=== PATIENT | female | born 1935 | race African-American/Black ===

== ENCOUNTER 2016-11-22 07:49 | Inpatient (IN) | payer MEDICARE ==
[~2016-11-22] VITALS: Ht 154.9 cm; Wt 75.8 kg
--- NOTE | ~2016-11-22 | OP ---
PATIENT NAME: ELIZABETH LOZANO MEDICAL RECORD: [id number] :34 LOCATION:D. D.2107 ADMISSION DATE:11/22/16 SURGEON: ARUN RUBALCAVA MD DATE OF OPERATION: 11/22/2016 She is operated today, 11/22/2016 REFERRING PHYSICIAN: Dr. Boss of [place]. PREOPERATIVE DIAGNOSES: Dialysis access complications with multiple prior dialysis access thromboses, multiple central vein stenoses, end-stage renal disease, diabetes and hypertension. POSTOPERATIVE DIAGNOSES: Dialysis access complications with multiple prior dialysis access thromboses and multiple central vein stenoses and end-stage renal disease, diabetes and hypertension. 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 at the confluence with the subclavian vein where it is jailed by a Wallstent and occlusion of the anterior jugular vein with collateralization of venous outflow to the shoulder and to the left neck, then ultrasound-guided central venous line insertion via the right common femoral vein done also with ultrasound guidance, then removal of a left internal jugular tunneled dialysis catheter, performance of a superior vena cavogram revealing severe stenoses of the internal jugular vein and left brachiocephalic vein, subsequent balloon angioplasty of those venous stenoses and then insertion of a HeRO outflow stents device into the right atrium. Then, implantation of a PTFE Acuseal graft in the left arm taking origin from the brachial artery above the antecubital space. SURGEON: Arun Rubalcava MD. ANESTHESIA: General endotracheal per Dr. Esposito, and CRNAs. ADDITIONAL PROCEDURES PERFORMED: Direct cannulation of the left brachial artery and a brachial artery arteriogram. PREOPERATIVE NOTE: Ms. Lozano is an 81-year-old -[place] from [facility]. She has end-stage renal disease. She is on chronic hemodialysis and has been off for sometime, access dependent on a tunneled left internal jugular dialysis catheter. 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 I have recommended that she have a HeRO graft implanted in the left arm. She will need additional IV access intraoperatively for at least the first day or two while she is hospitalized and so I have additional central line inserted. Under general endotracheal anesthesia in supine position first, the patient is prepped and draped in sterile manner and the right neck was examined, the anterior jugular vein was prominent, the internal jugular vein was patent at least above the level of the clavicle. It was accessed with ultrasound guidance and micropuncture technique and I found that I could not advance a wire into the brachiocephalic vein due to the jailing effect of the Wallstents. I accessed the anterior jugular vein and found basically the same thing. I injected OPERATIVE REPORT [id number] ELIZABETH LOZANO contrast through the micropuncture catheter and demonstrated total occlusion of the internal and anterior jugular vein with collateralization of venous outflow to the left neck and over to the right shoulder area and chest wall. I abandoned that site and then went to the right groin where the patient has had prior venous access for dialysis I assume. I was able to see an accessible common femoral vein and with ultrasound guidance, I inserted an Arrow guard central venous triple lumen catheter. All lumens were aspirated, free return of blood confirmed. They were then heparin lock, clamped and capped and the catheter sutured to the skin near the entry site with 2-0 Prolene and a sterile dressing applied. The patient was then prepped and draped for the HeRO graft implantation. I made an incision at the base of the neck on the left and freed the tunneled dialysis catheter from the surrounding structures. I placed a pursestring suture around it to provide vascular control. The subcutaneous segment with the Dacron felt cuff was excised and sent for culture and the external segment was discarded. I removed the intravascular portion over a Glidewire and it was discarded. I positioned the guidewire in the inferior vena cava and then did a catheter exchange with a Glidewire and placed an Amplatz wire, which reach down into the left iliac vein. A 7-Cape Verdean introducer was placed and an angiogram performed, which demonstrated stenosis of the internal jugular and left brachiocephalic veins, which was very severe and no apparent significant stenosis of the superior vena cava with normal flow into the right atrium. I subsequently dilated the brachiocephalic vein and internal jugular vein with an 8-mm diameter x 60 mm angioplasty balloon and then passed additional dilators over the Amplatz wire and then a peel-away introducer dilator and lastly the HeRO outflow device was inserted and its tip positioned in the right atrium. It was aspirated, free return of blood confirmed. It was then flushed with saline and then dilute heparin lock solution and clamped. An incision was made beneath the clavicle in the deltopectoral groove and the HeRO outflow device then pulled through subcutaneous tunnel into that incision where it was appropriately then shortened and prepared for connection with a PTFE graft. It was again flushed with heparinized saline and clamped. I then made a fairly large incision on the distal left arm, I first exposed the old cephalic vein and brachial artery anastomosis, actually the scarring was quite dense and the dissection tedious and hazardous. So I then extended the incision upwards and exposed a more proximal portion of the brachial artery. The pulsation in the artery were diminished and to evaluate for possible proximal arterial stenosis, I did a direct cannulation of the brachial artery with micropuncture technique and inserted a 4-Cape Verdean catheter and injected contrast with digital subtraction angiography technique and demonstrated that there was a patent subclavian and axillary vein as well as brachial vein without stenoses. Distally around the area on which I was working, there were areas of beating or probably spasm and there was good flow through both the radial and ulnar arteries into the hand with an intact palmar arch. I then controlled the artery with doubly looped Silastic tapes, it was occluded. A small arteriotomy was made. I did not think that an Acuseal graft would do well, sutured to a small about 3-1/2-mm diameter artery and so I chose to use a tapered 4-mm to 7 mm Propaten PTFE graft. I used just a short tapered segment. The 4-mm end was beveled. The artery was opened. It was flushed with heparinized saline proximally and distally and the anastomosis completed with running 6-0 Prolene. The suture line was treated with Evicel and after a period of time had lapsed, the graft was clamped and the brachial artery loops released and excellent flow was immediately restored in the brachial artery and there was good pulsation in the new PTFE graft. I then took a standard 6-mm diameter Acuseal graft and anastomosed it end-to-end to the OPERATIVE REPORT [id number] ELIZABETH LOZANO segment. This was done with running 6-0 Prolene and I then treated that anastomotic suture line with BioGlue and after sufficient period of time had elapsed, the Acuseal graft was clamped and the clamp on the Propaten segment released and the suture lines found to be hemostatic. The graft was then flushed with heparinized saline and clamped again. It was placed in a very superficial subcutaneous tunnel, then from the antecubital space up to the deltopectoral groove. It was shortened and attached then with a HeRO connector to the HeRO outflow device and that was sutured to the investing pectoral fascia with a single 2-0 Prolene suture. With release of the occluding clamps, excellent flow manifested by a good thrill, was immediately identified. The patient had not been systemically anticoagulated and was not necessary to reverse any heparin. The wounds were irrigated with Ancef and gentamicin solution. They were infiltrated and irrigated with 0.25% Marcaine with epinephrine and closed without the use of a drain in layers with interrupted inverted 3-0 Vicryl and running intracuticular 4-0 Monocryl and Dermabond glue. They were dressed with Maxorb Ag, Tegaderm and Cavilon skin prep and the patient awakened from her anesthetic, was taken to the recovery room in stable condition. Blood loss about 100 cc was unreplaced. All sponges, instruments and needles were accounted for and no drain was used as I described. The only "specimen" was the short cuff segment of tunneled dialysis catheter, which was sent for culture only. PLAN: The patient will remain in inpatient status overnight tonight and have dialysis here tomorrow following Acuseal protocol. She will be discharged to home when she is otherwise stable from all of her other medical problems when her pain is adequately controlled with oral medications and her dialysis access has been demonstrated reliable. I will have her follow up with me in about a week after her discharge. She will need to continue Acuseal protocol for 2 weeks when she gets back to [facility]. TRANSINT:[id number] Voice Confirmation ID: [id number] DOCUMENT ID: [id number] ARUN RUBALCAVA MD CC: KARSTEN BOSS III MD [id number] DICTATION DATE: 11/22/161811 ASSISTANT BASKETBALL COACH: 11/22/16 2352 ADM IN [facility] [address] [place] [address]
[2016-11-22 08:48] LABS: BASOPHILS 0.5 % (0-2); EOSINOPHILS 3.8 % (0-7); HEMATOCRIT 36.9 % (36.0-48.0); HEMOGLOBIN 11.7 g/dL (12-16); IMMATURE GRANULOCYTES 0.2 % (0-5); LYMPHOCYTES 40.4 % (15-50); MCH 29.4 pg (26.0-34.0); MCHC 31.7 g/dL (31.0-37.0); MCV 92.7 fL (80.0-100.0); MONOCYTES 4.3 % (2-11); NEUTROPHILS 50.8 % (40-80); PLATELET COUNT 159 10x3/uL (130-400); RBC 3.98 10x6/uL (4.00-5.40); RDW 16.1 % (11.5-14.5)
[2016-11-22 09:02] LABS: APTT 28.9 SECONDS (22.8-39.4); INR 0.94 (0.85-1.17); PROTIME 12.4 SECONDS (11.6-15.0)
[2016-11-22 09:16] LABS: CALCIUM 8.4 mg/dL (8.5-10.1); CARBON DIOXIDE 20.2 mmol/L (21.0-32.0); CREATININE - SERUM 4.8 mg/dL (0.6-1.3); POTASSIUM - SERUM 4.2 mmol/L (3.5-5.1)
[2016-11-22] MEDS ORDERED: NORVASC10 MG PO (10:00)
[2016-11-22] MEDS ORDERED: COZAAR100 MG PO (10:01)
[2016-11-22] MEDS ORDERED: METOPROLOL TART50 MG PO (10:02)
[2016-11-22] MEDS ORDERED: NEPHROCAPS SOFTG1 MG PO (10:03)
[2016-11-22 10:05] VITALS: BMI 31.6
[2016-11-23 04:34] VITALS: BP 142/67
[2016-11-23 07:50] VITALS: BP 140/48
[2016-11-23 11:46] VITALS: Ht 154.9 cm; Wt 75.8 kg
== END 2016-11-23 16:25 | disposition home or self-care (01) | DRG 252 ==
LOC: D.OPS 07:49 → D.M2 18:14 → D.OPS 18:15 → D.M2 18:15
PROVIDERS: Surgery; ADMIT Internal Medicine Nephrology
PROC: 037Y3ZZ Dilation of Upper Artery, Percutaneous Approach (ICD-10-PCS; 2016-11-22)
PROC: 03180JD Bypass Left Brachial Artery to Upper Arm Vein with Synthetic Substitute, Open Approach (ICD-10-PCS; 2016-11-22)
PROC: 03180KF Bypass Left Brachial Artery to Lower Arm Vein with Nonautologous Tissue Substitute, Open Approach (ICD-10-PCS; 2016-11-22)
PROC: 02HV33Z Insertion of Infusion Device into Superior Vena Cava, Percutaneous Approach (ICD-10-PCS; 2016-11-22)
PROC: B548ZZA Ultrasonography of Superior Vena Cava, Guidance (ICD-10-PCS; 2016-11-22)
PROC: B5181ZZ Fluoroscopy of Superior Vena Cava using Low Osmolar Contrast (ICD-10-PCS; 2016-11-22)
PROC: 05PYX3Z Removal of Infusion Device from Upper Vein, External Approach (ICD-10-PCS; 2016-11-22)
PROC: B5131ZZ Fluoroscopy of Right Jugular Veins using Low Osmolar Contrast (ICD-10-PCS; principal; 2016-11-22 12:00)
PROC: 05743ZZ Dilation of Left Innominate Vein, Percutaneous Approach (ICD-10-PCS; 2016-11-22 12:00)
PROC: 5A1D00Z (ICD-10-PCS; 2016-11-23)
DX: T82.868A Thrombosis due to vascular prosthetic devices, implants and grafts, initial encounter (principal); N18.6 End stage renal disease; I12.0 Hypertensive chronic kidney disease with stage 5 chronic kidney disease or end stage renal disease; Y83.8 Other surgical procedures as the cause of abnormal reaction of the patient, or of later complication, without mention of misadventure at the time of the procedure; E11.22 Type 2 diabetes mellitus with diabetic chronic kidney disease; Z99.2 Dependence on renal dialysis; Z87.891 Personal history of nicotine dependence; D64.9 Anemia, unspecified

== ENCOUNTER 2017-01-18 20:24 | Inpatient (IN) | payer MEDICARE ==
[~2017-01-18] VITALS: Ht 154.9 cm; Wt 78.9 kg
[~2017-01-18 20:24] MED LIST: COZAAR100 MG PO; METOPROLOL TART50 MG PO; NEPHROCAPS SOFTG1 MG PO; NORVASC10 MG PO
--- NOTE | 2017-01-19 00:11 | NUR ---
PT ARRIVED VIA WHEELCHAIR WITH FAMILY. PUT AMBULATE TO BED. GAIT UNSTEADY. PT LEANING OVER FOR SUPPORT OF BED. PT IS AAO. A RESERVE LEFT ARM SIGN HUNG ABOVE BED. PT IS NPO AND VERBALIZES UNDERSTANDING. PT DENIES ANY NEEDS. PT RESTING IN BED. NO S/S OF DISTRESS. WILL CPOC
--- NOTE | 2017-01-19 01:20 | NUR ---
PAGED THE ASSOCIATE DESIGNER AND TAXI INSTRUCTOR BUS TROLLEY TO ASK ABOUT ORDERS AND TO CLARIFY ON WEATHER OR NOT I CAN USE RIGHT ARM FOR BLOOD DRAWS AND IV ACCESS. PT STATES THERE IS A FISTULA IN THAT UPPER ARM, LET LAB DRAW FROM HAND BUT WOULD NOT ALLOW ABOVE THE WRIST. WILL CPOC
--- NOTE | 2017-01-19 03:00 | NUR ---
SPOKE WITH DIONISIO DIAS ABOUT RIGHT ARM, SHE VERBALIZED THAT THE ARM IS OK TO USE ON BLOOD DRAWS AND IV ACCESS. PT VERBALIZES UNDERSTANDING AND DENIES ANY QUESTIONS OR CONCERNS. DIONISIO ALSO GAVE ORDERS TO DRAW A PT AND INR, AND APTT ALSO SAID COZAAR 100MG PO DAILY AND LOPRESSOR 50 MG BID COULD BE PUT IN. WILL CPOC
[2017-01-19 03:22] VITALS: BP 167/53; BMI 37.1
[2017-01-19 05:43] LABS: APTT 31.6 SECONDS (22.8-39.4); INR 1.01 (0.85-1.17); PROTIME 13.2 SECONDS (11.6-15.0)
[2017-01-19 06:29] LABS: ANION GAP 21.7 mmol/L (8-16); CALCIUM 8.3 mg/dL (8.5-10.1); CARBON DIOXIDE 17.9 mmol/L (21.0-32.0); POTASSIUM - SERUM 4.6 mmol/L (3.5-5.1)
[2017-01-19 06:47] LABS: BASOPHILS 0.2 % (0-2); EOSINOPHILS 5.9 % (0-7); HEMATOCRIT 29.8 % (36.0-48.0); HEMOGLOBIN 9.8 g/dL (12-16); IMMATURE GRANULOCYTES 0.2 % (0-5); LYMPHOCYTES 32.7 % (15-50); MCH 31.2 pg (26.0-34.0); MCHC 32.9 g/dL (31.0-37.0); MCV 94.9 fL (80.0-100.0); MEAN PLATELET VOLUME 9.5 fL (7.4-10.4); MONOCYTES 7.5 % (2-11); NEUTROPHILS 53.5 % (40-80); PLATELET COUNT 193 10x3/uL (130-400); RBC 3.14 10x6/uL (4.00-5.40); RDW 19.4 % (11.5-14.5); WBC 8.3 10x3/uL (4.8-10.8)
--- NOTE | 2017-01-19 07:10 | NUR ---
PT RESTING IN BED. CONSENTS SIGNED. PT DENIES ANY NEEDS OR CONCERNS. NO S/S OF DISTRESS. WILL CPOC
--- NOTE | 2017-01-19 07:15 | NUR ---
RECIEVED REPORT ON PATIENT, PATIENT IS SLEEPING AT THIS TIME, NAD NOTED. CHEST RISES AND FALLS EQUALLY. BED IS LOW AND LOCKED AT THIS TIME. CALL LIGHT IN [facility]. CPOC
[2017-01-19 08:00] VITALS: BP 150/64
--- NOTE | 2017-01-19 09:50 | NUR ---
PATIENT PREOP PER DR RUBALCAVA, STATED PATIENT WOULD BE GOING TO SURGERY IN 30-45MINS. CPOC
--- NOTE | 2017-01-19 11:40 | NUR ---
PATIENT GONE TO SURGERY AT THIS TIME. CPOC
[2017-01-19 14:36] VITALS: BP 169/76
--- NOTE | 2017-01-19 14:39 | NUR ---
PATIENT BACK FROM SURGERY, VS: BP 169/73 HR 53, O2SAT 96% ON ROOM AIR, RR 14, TEMP 97.0. PATIENT C/O PAIN IN L ARM 12/24. WILL GIVE PAIN MEDICATION. CPOC
--- NOTE | 2017-01-19 14:45 | NUR ---
PAGEChristian DIAS FOR PATIENT WANTING PAIN MEDICATION. WAITING E COMMERCE DIRECTOR BACK. CPOC
--- NOTE | 2017-01-19 15:26 | NUR ---
PAGED RACHNA AGAIN, FOR PATIENT NEEDING PAIN MEDICATION. WAITING JURY CONSULTANT BACK.
[2017-01-19 16:00] VITALS: BP 168/74
--- NOTE | 2017-01-19 17:00 | NUR ---
PATIENT VISITING WITH FAMILY. PATIENT DENIES ANY NEEDS AT THIS TIME. BED IS LOW AND LOCKED. STATES PAIN IS OKAY RIGHT NOW INFORMED PATIENT I HAVE PAGED THE DIRECTOR COMM[facility]ITY [facility]ALTH NURSING WAITING RELIABILITY TECHNICIAN BACK FOR PAIN MEDICATION. CPOC
--- NOTE | 2017-01-19 18:00 | NUR ---
SPOKE WITH DR GARCIA. OKAYED TO ORDER 650MG OF TYLENOL Q6H PRN PAIN.
--- NOTE | 2017-01-19 18:28 | NUR ---
PATIENT IS RESTING, NAD NOTED. BED LOW AND LOCKED. CPOC
--- NOTE | 2017-01-19 18:47 | NUR ---
SCDS ON AND TOLERATING AT THIS TIME.
--- NOTE | 2017-01-19 19:28 | NUR ---
RECEIVED REPORT, WILL ASSUME CARE OF PT, PT DENIES ANY NEEDS AT THIS TIME, BED IS LOW, SRX2, SCD ARE ON, WILL CONTINUE PLAN OF CARE
[2017-01-19 20:00] VITALS: BP 160/71
[2017-01-20] VITALS: BP 145/56
[2017-01-20 04:00] VITALS: BP 144/60
--- NOTE | 2017-01-20 07:30 | NUR ---
RECIEVED REPORT ON PATIENT, PATIENT IS ALERT AND ORIENTED AT THIS TIME. PATIENT HAS A R HAND IV THAT IS SL AT THIS TIME. PATIENT HAS A L AVF WITH THRILL AND BRUIT NOTED. BED IS LOW AND LOCKED AT THIS TIME. CPOC
[2017-01-20 08:00] VITALS: BP 151/59
--- NOTE | 2017-01-20 09:05 | NUR ---
MORNING MEDICATION GIVEN. DENIES ANY NEEDS. CPOC
--- NOTE | 2017-01-20 11:10 | NUR ---
PATIENT COMPLAINED OF BACK PAIN AND REQUEST TO SIT UP ON SIDE OF BED. TYLENOL GIVEN. WILL CONTINUE TO MONITOR. CPOC.
[2017-01-20 12:00] VITALS: BP 147/58
--- NOTE | 2017-01-20 12:27 | NUR ---
PATIENT SITTING ON SIDE OF BED WITH LUNCH TRAY. STATES BACK FEELS "MUCH BETTER". NO COMPLAINTS OR REQUESTS AT THIS TIME. CPOC.
--- NOTE | 2017-01-20 14:31 | NUR ---
PATIENT RESTING IN BED. UPSET ABOUT NOT HAVING DIALYSIS YET. EXPLAINED SHE WILL HAVE DIALYSIS THIS AFTERNOON. STATES SHE WANTS TO GO HOME. ALL QUESTIONS ANSWERED. NO OTHER REQUESTS AT THIS TIME. CALL LIGHT IN REACH. CPOC.
--- NOTE | 2017-01-20 16:51 | NUR ---
PATIENT GONE FOR DIAYLSIS. CPOC
--- NOTE | 2017-01-20 18:32 | NUR ---
PATIENT STILL IN DIAYLSIS AT THIS TIME. CPOC
--- NOTE | 2017-01-20 19:56 | NUR ---
RECIEVED REPORT FROM JASON IN DIALYSIS, PULLED OFF 1 LITER, VITALS REPORTED TO BE STABLE. NOTIFIED CNAs THAT PT IS READY TO COME BACK TO THE FLOOR, DEVONTE LEFT FLOOR TO RETIEVE PT.
--- NOTE | 2017-01-20 21:27 | NUR ---
HS MEDS GIVEN WITH FRESH ICE WATER.
[2017-01-20 22:18] VITALS: BP 149/49
--- NOTE | 2017-01-20 22:52 | NUR ---
TYLENOL 650 MG GIVEN AT PT REQUEST FOR C/O GERNERALIZED DISCOMFORT. RATES PAIN AT A 5 ON PAIN SCALE, BED LOW, CL IN REACH, RESPOSITIONED IN BED FOR COMFORT.
[2017-01-21 02:50] VITALS: BP 147/54
--- NOTE | 2017-01-21 03:36 | NUR ---
RESTING WITH EYES CLOSED, RESPERATIONS EVEN, NO S/S DISTRESS NOTED.
--- NOTE | 2017-01-21 08:01 | NUR ---
AM ROUNDS - PT IS IN BED AND IS AWAKE AT THIS TIME. PT IS HARD OF HEARING. RESERVE AT LEFT ARM, AVF. IV TO RIGHT HAND, SL. PT IS ON ROOM AIR. INCONT OF B&B. STILL PRODUCES URINE. PT IS UP WITH ASSIST. NO NEEDS AT THIS TIME. BED AT LOWEST POSITION. CALL SANCHEZ IN USE/REACH. SIDE RAILS UP X2. WILL CONTINUE TO MONITOR
[2017-01-21 08:32] VITALS: BP 172/74
[2017-01-21 10:19] LABS: HEPATITIS C ANTIBODY <0.1 (0.0-0.9)
[2017-01-21 12:34] VITALS: BP 142/57
[2017-01-21 13:03] VITALS: Ht 154.9 cm; Wt 78.9 kg
[2017-01-21 16:31] VITALS: BP 122/71
--- NOTE | 2017-01-21 17:24 | NUR ---
Patient Name: ELIZABETH LOZANO Admission Status: Elective Accout number: [id number] Admission Date: 01-18-2017 : 1935 Admission Diagnosis:THROMBOSIS DUE TO VASCULAR PROSTH DEV/GRAIDAN, INIT Attending: ANÍBAL GARCIA Current LOS: 3 Anticipated DC Date: 01-21-2017 Planned Disposition: Home Primary Insurance: MEDICARE A & B Discharge Planning Comments: * Is the patient Alert and Oriented? Yes 0 * How many steps to enter\exit or inside your home? NONE 0 * PCP DR. CARLOS ENRIQUE RAMÍREZ 0 * Pharmacy [facility] IN [place], [place]. 0 * Preadmission Environment Home with Family 0 * ADLs Independent 0 * Equipment Bedside Commode Rolling Walker Shower Chair 0 * Other Equipment [facility] - PREFERRED EQUIPMENT PROVIDER 0 * List name and contact numbers for known caregivers / representatives who currently or will assist patient after discharge: ROXY SMITH, DTR, OLIVN JACOBSEN, DTR, 0 * Community resources currently utilized Other 0 * Please name any agencies selected above. OUTPATIENT DIALYSIS, [facility], [place] [place], 0630AM. MEDICAID TRANSPORT ($6 ROUND TRIP) 0 * Additional services required to return to the preadmission environment? No 0 * Can the patient safely return to the preadmission environment? Yes 0 * Has this patient been hospitalized within the prior 30 days at any hospital? No 0 CM MET WITH PT AND DAUGHTER IN ROOM TO DISCUSS DISCHARGE PLANNING AND NEEDS. PT REPORTS LIVING AT HOME INDEPENDENTLY WITH HER SPOUSE. PT HAS ALL NEEDED MEDICAL EQUIPMENT AND NO OUTSIDE SERVICES ASSISTING IN THE HOME. PT GOES TO DIALYSIS ON T[facility] 0630AM SCHEDULE, MEDICAID TRANSPORTATION. CM DISCUSSED AVAILABILITY OF HOME HEALTH, REHAB SERVICES AND MEDICAL EQUIPMENT. PT DENIES DISCHARGE NEEDS, REPORTS HER DAUGHTER IS HERE TO PICK HER UP FOR DISCHARGE HOME. IMPORTANT MESSAGE FROM MEDICARE PROVIDED AND EXPLAINED. Drawing Instructor: Isak Gómez
--- NOTE | 2017-01-21 17:26 | NUR ---
D/C - WRITTEN AND VERBAL D/C GIVEN TO PT. IV TO RIGTH HAND D/C, CATH TIP INTACT, 2X2 DRESSING APPLIED AND SECURED WITH TAPE. PT TOLERATED WELL. PT LEFT FLOOR VIA WHEELCHAIR WITH RN. WILL D/C
--- NOTE | 2017-01-28 13:00 | OP ---
PATIENT NAME: ELIZABETH LOZANO MEDICAL RECORD: [id number] :34 LOCATION:D. D.2138 ADMISSION DATE:01/18/17 SURGEON: ARUN RUBALCAVA MD DATE OF OPERATION: 01/19/2017 REFERRED BY: Jacques Reyna MD BRUNING BRUSHER WARP: Jacques Johnson MD PREOPERATIVE DIAGNOSES: End-stage renal disease and dependence on dialysis, now with a thrombosed left upper extremity HeRO AV graft. POSTOPERATIVE DIAGNOSES: End-stage renal disease and dependence on dialysis, now with a thrombosed left upper extremity HeRO AV graft. OPERATION PERFORMED: Fistulogram with AngioJet mechanical thrombolysis, balloon angioplasty, and selective brachial arteriogram. SURGEON: Arun Rubalcava MD ANESTHESIA: TIVA per POTTERY DECORATOR. PREOPERATIVE NOTE: Ms. Lozano is an 81-year-old -[place]uean female from [place], [place], who has been on dialysis now for some time. She has had numerous accesses and has extensive central vein stenosis. I placed a HeRO graft in her in November of this year, just about 2 months ago, and she has been doing fine from that as far as I know until she presented for dialysis yesterday in [place] and her graft was thrombosed. The patient and her family relate that she had been having postcannulation bleeding problems. She is not on anticoagulants. I believe there is a history of GI bleeding. The graft, which I placed in November, is an Acuseal connected to the HeRO, although there is a short length of tapered Propaten graft on the arterial anastomosis end. She is brought to the operating room now to try to salvage the fistula or access. DESCRIPTION OF PROCEDURE: Under TIVA, the patient was placed in supine position and prepped and draped in sterile manner. It turned out no local anesthetic was needed. The graft was accessed with ultrasound guidance and micropuncture technique. Two 6-Yoruba introducers were placed in opposing retrograde and antegrade corrections. A Glidewire was passed proximally to the right atrium and an AngioJet catheter was used to lyse and remove the thrombus from the body of the graft and the venous outflow device. Contrast injection revealed a fairly mild stenosis of the graft just distal to the connector and this was dilated with a 6-mm balloon with full effacement very very easily. I passed a Glidewire then in a retrograde direction from the proximal port to the brachial artery anastomosis and selectively advanced the wire into the proximal brachial artery. A glide catheter was inserted and contrast injection then made with digital subtraction angiography to perform the selective brachial artery arteriogram. There was an area of clot producing stenosis in the arterial anastomosis and the arterial anastomosis itself has a beaded deformity with areas of mild stenosis proximal and distal to the anastomosis right at the top and bottom ends. I subsequently dilated this area with a 4-mm diameter angioplasty balloon and inflated my hand without any difficulty to full effacement. Repeated selective brachial arteriogram revealed what I thought was evidence of embolization in the distal brachial artery with reduced flow into OPERATIVE REPORT [id number] ELIZABETH LOZANO the forearm. I passed the wire and catheter then into the distal brachial artery and repeat contrast injections revealed significant improvement with flow into the hand via both radial and ulnar arteries. I was concerned that there had been a shower of some emboli at least and went ahead and injected 2 mg bolus of TPA into the distal brachial artery to help breakup any thrombi which might be obstructing distal flow, especially in the hand. The graft was seen to be functioning well with no residual stenosis in the arterial anastomosis and good flow all the way to the right atrium. The patient had been given 5000 units of heparin at the beginning of the procedure and this was not reversed. The ports were removed and hemostasis was obtained with direct digital pressure and [id number] 4-0 Prolene sutures for skin. Dressings of Avitene Ultrafoam, Tegaderm, and Cavilon skin prep were applied. The patient, in stable condition, was taken to the recovery room. There was minimal blood loss, about 5 cc. None was replaced intraoperatively of course. All sponges, instruments, and needles were accounted for. No drain was used. PLAN: The patient will need to have dialysis here in [place] either today or tomorrow before she can be released to go home to [place], [place]. I have not reversed her heparin today and I am giving her 150 mg dose of Plavix in the recovery room. My preference would be that she would be kept on anticoagulation with either Coumadin or Plavix; however, there is a history of some type of GI bleeding problem and I believe that her medical doctors would be better able to packaging mechanic her risk for long-term anticoagulation therapy. We will ask Dr. Johnson and Dr. Reyna to make that decision. I do not need to see her back in my office. I do recommend of course that she be referred to [facility] for angiography anytime if there is a change in pattern; postcannulation bleeding; any change in her pressures, Kt/V, access flows, etc. Hopefully, we can head off any acute thrombosis in that manner. TRANSINT:[id number] Voice Confirmation ID: [id number] DOCUMENT ID: [id number] ARUN RUBALCAVA MD at 1300 CC: JACQUES REYNA MD [id number] DICTATION DATE: 01/19/17 1427 SEAT COVER MAKER: 01/19/17 1531 DIS IN 01/21/17 [id number] [place] [address]
== END 2017-01-21 17:39 | disposition home or self-care (01) | DRG 252 ==
LOC: D.M2 20:24 → UNDOADMIN 20:24 → D.M2 23:58
PROVIDERS: Surgery; ADMIT Internal Medicine Nephrology
PROC: B51W1ZZ Fluoroscopy of Dialysis Shunt/Fistula using Low Osmolar Contrast (ICD-10-PCS; principal; 2017-01-19 12:00)
PROC: 03C83ZZ Extirpation of Matter from Left Brachial Artery, Percutaneous Approach (ICD-10-PCS; 2017-01-19 12:00)
PROC: 03783ZZ Dilation of Left Brachial Artery, Percutaneous Approach (ICD-10-PCS; 2017-01-19 12:00)
PROC: B31J1ZZ Fluoroscopy of Left Upper Extremity Arteries using Low Osmolar Contrast (ICD-10-PCS; 2017-01-19 12:00)
PROC: 5A1D70Z Performance of Urinary Filtration, Intermittent, Less than 6 Hours Per Day (ICD-10-PCS; 2017-01-20)
DX: T82.868A Thrombosis due to vascular prosthetic devices, implants and grafts, initial encounter (principal); N18.6 End stage renal disease; I12.0 Hypertensive chronic kidney disease with stage 5 chronic kidney disease or end stage renal disease; Y83.8 Other surgical procedures as the cause of abnormal reaction of the patient, or of later complication, without mention of misadventure at the time of the procedure; E11.22 Type 2 diabetes mellitus with diabetic chronic kidney disease; Z99.2 Dependence on renal dialysis; Z87.891 Personal history of nicotine dependence

== ENCOUNTER 2017-01-31 09:30 | Inpatient (IN) | payer MEDICARE ==
[~2017-01-31] VITALS: Ht 154.9 cm; Wt 87.4 kg
[2017-01-31 10:28] LABS: BASOPHILS 0.2 % (0-2); EOSINOPHILS 7.1 % (0-7); HEMATOCRIT 27.4 % (36.0-48.0); HEMOGLOBIN 9.7 g/dL (12-16); IMMATURE GRANULOCYTES 0.2 % (0-5); LYMPHOCYTES 27.8 % (15-50); MCH 35.9 pg (26.0-34.0); MCHC 35.4 g/dL (31.0-37.0); MCV 101.5 fL (80.0-100.0); MEAN PLATELET VOLUME 9.2 fL (7.4-10.4); MONOCYTES 5.6 % (2-11); NEUTROPHILS 59.1 % (40-80); WBC 5.9 10x3/uL (4.8-10.8)
[2017-01-31 10:33] VITALS: BP 144/66; BMI 30.8
[2017-01-31 10:37] LABS: PLATELET COUNT 233 10x3/uL (130-400)
[2017-01-31 10:45] LABS: ANION GAP 23.9 mmol/L (8-16); CALCIUM 7.7 mg/dL (8.5-10.1); CARBON DIOXIDE 20.1 mmol/L (21.0-32.0); CREATININE - SERUM 7.9 mg/dL (0.6-1.3)
[2017-01-31 10:46] LABS: APTT 30.4 SECONDS (22.8-39.4)
[2017-01-31 10:47] LABS: INR 0.97 (0.85-1.17); PROTIME 12.8 SECONDS (11.6-15.0)
[2017-01-31 11:36] VITALS: BP 144/66; BMI 30.8
--- NOTE | 2017-01-31 15:15 | NUR ---
PRE OOP BP 180/100
--- NOTE | 2017-01-31 16:53 | NUR ---
TRANSFER FROM OR BY STRETCHER. CALL LIGHT IN REACH. WILL CONT. PLAN OF CARE.
[2017-01-31 16:59] VITALS: BP 191/89
[2017-01-31 17:25] VITALS: BP 190/86; BMI 36.9
--- NOTE | 2017-01-31 20:11 | NUR ---
PT IN BED RESTING QUIETLY. C/O PAIN. TOLD PT I WILL BRING HER PRN TYLENOL. BREATHING EVEN AND UNLABORED. BED IN LOW POSITION, CALL LIGHT WITHIN REACH.
[2017-01-31 22:40] VITALS: BP 153/74
[2017-02-01 02:08] VITALS: BP 95/44
[2017-02-01 06:37] VITALS: BP 154/65
--- NOTE | 2017-02-01 07:52 | NUR ---
PATIENT ALERT/ORIENT X4. OXYGEN ON AT 3L PER N/C. FISTULA TO LEFT ARM. RESERVE LEFT ARM. RIGHT FOREARM SALINE LOCKED. PATIENT IS VERY [place]. CALL LIGHT WITHIN REACH.
[2017-02-01 08:00] VITALS: BP 150/61
[2017-02-01 12:00] VITALS: BP 170/70
--- NOTE | 2017-02-01 13:05 | NUR ---
CUSTOMS OPENER VERIFIER PACKER IN ROOM. PATIENT RECEIVING DIALYSIS TX TODAY
[2017-02-01 13:39] VITALS: Ht 154.9 cm; Wt 87.4 kg
--- NOTE | 2017-02-01 15:24 | NUR ---
DAILYSIS TX CONTINUES. AUTOMATIC DRILL OPERATOR IN PATIENTS ROOM
[2017-02-01 16:00] VITALS: BP 177/77
--- NOTE | 2017-02-01 17:14 | NUR ---
DIALYSIS TX DONE. ONE LITTER OF FLUIDS REMOVED. PATIENT TOLERATED WELL
--- NOTE | 2017-02-01 18:33 | NUR ---
PATIENT RESTING WELL. OXYGEN ON AT 3L PER N/C. VOICES NO NEEDS. CALL LIGHT WITHIN REACH
--- NOTE | 2017-02-01 20:00 | NUR ---
PT ALERT/ORIENTED AND RESTING IN BED. HER HOME MEDS HAVE NOT BEEN ASSESED YET BY MD. SHE IS WANTING TO TAKE HER PILLS THAT SHE BROUGHT FROM HOME. REVIEWED MEDS AND AGREED THAT PT COULD TAKE HER LOPRESSOR AND NORJOSE CARDONA AND DR GATES WILL BE MADE AWARE OF MEDS NEEDING TO BE REVIEWED IN AM. PT IS VERY [place]. SHE DID DIALYZE TODAY AND HAS A AVF TO BATSHEVA. SHE STILL MAKES SOME URINE AND IS OFTEN INCONTINENT OF BM. CPOC. F/U ON HOME MEDS IN AM WITH RAY TOUR CONSULTANT.
[2017-02-01 21:07] VITALS: BP 152/54
[2017-02-02 00:42] VITALS: BP 103/58
[2017-02-02 04:46] VITALS: BP 117/63
--- NOTE | 2017-02-02 07:30 | NUR ---
REPORT RECEIVED. RR EVEN AND UNALBORED, PT EXPRESSED WANT TO GO HOME TODAY. DENIES FURTHER NEEDS, WILL CTM.
[2017-02-02 08:00] VITALS: BP 159/65
--- NOTE | 2017-02-02 11:00 | NUR ---
PT C/O PAIN IN HER LEFT UPPER ARM. WILL GIVE PRN PAIN MEDS AND CTM.
[2017-02-02 12:00] VITALS: BP 163/69
--- NOTE | 2017-02-02 13:07 | OP ---
PATIENT NAME: ELIZABETH LOZANO MEDICAL RECORD: [id number] :34 LOCATION:D. 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 SURGEON: Arun Rubalcava MD OPERATION PERFORMED: Percutaneous angiogram with AngioJet mechanical thrombolysis, tPA pharmacothrombolysis, selective brachial artery arteriogram, and balloon angioplasty of arterial anastomotic stenosis. PREOPERATIVE NOTE: Ms. Lozano is a very nice 81-year-old -[place] female from [place], [place], who has end-stage renal disease and is on chronic hemodialysis. She has been dialyzing for a while now with left upper extremity HeRO graft. Only last week, I performed a mechanical thrombolysis and angioplasty procedure to reopen her thrombosed graft. She dialyzed twice after that down at [facility]; but then, when she presented for dialysis yesterday, it had thrombosed again. When she went home from the hospital last time, it was my intention that she be on Plavix, I have not had confirmation that she has been. If she has, I think we are going to need to add another anticoagulant such as Coumadin; and if not, we just need to make sure that she is on Plavix this time. DESCRIPTION OF PROCEDURE: Under general anesthesia with an LMA per HUMANITIES INSTRUCTOR, the patient was prepped and draped in sterile manner. The Acuseal graft in her arm was accessed with micropuncture technique. Two opposing 6-Uzbek introducers were placed in the body of the graft. A Glidewire was passed through the arterial limb and arterial anastomosis into the brachial artery and a glide catheter followed. Selective brachial arteriogram then demonstrated no evidence of thrombus or occlusion of the brachial artery or branches, but there was a high-grade stenosis at the arterial anastomosis. I then used the AngioJet catheter to lyse thrombus within the juxta-anastomotic segment. The patient was systemically heparinized with 5000 units of heparin and 2 mg of Activase was administered into the juxta-anastomotic segment. After sufficient dwell time, the contents were aspirated. I then used a 5-mm diameter high-pressure angioplasty balloon to dilate the arterial anastomosis. The arterial anastomosis was dilated and the balloon was left inflated for 2 minutes, during which time I used an AngioJet catheter and a Jasmin catheter to remove and lyse thrombus from within the body of the HeRO graft and the outflow device all the way to the right atrium. When the angioplasty balloon was deflated, flow was restored in the graft. Repeat contrast injections with also repeat selective brachial artery arteriogram showed no evidence of residual thrombus and excellent flow in the access. The patient's heparin was not reversed. The 6-Uzbek introducers were removed and hemostasis was obtained at those sites with some direct pressure and 4-0 Prolene nbenba-dt-apbuf skin sutures. Over that, sterile dressings were applied and the patient was awakened from anesthetic with a functioning AV graft and was taken to the recovery room. In the recovery room, she will be given 150 mg of Plavix orally and will be getting 75 mg of Plavix orally q.a.m. as of tomorrow morning. She will need to OPERATIVE REPORT [id number] ELIZABETH LOZANO stay in the hospital overnight. She will need to have dialysis here at [place], most definitely either this evening or tomorrow, certainly before she can go home to [facility]. There was no blood loss during the procedure other than what was aspirated to remove clot and debris. About 50 cc was aspirated and discarded. All sponges, instruments, and needles were accounted for. No drain was used and no surgical specimen was submitted for histopathology. TRANSINT:[id number] Voice Confirmation ID: [id number] DOCUMENT ID: [id number] ARUN RUBALCAVA MD at 1307 CC: KARSTEN BOSS III MD [id number] DICTATION DATE: 01/31/17 1518 GUM PULLER: 01/31/17 1651 ADM IN [facility] [address] [facility]
--- NOTE | 2017-02-02 13:44 | NUR ---
PT IN BED TALKING ON PHONE. RIGHT FA SALINE LOCKED. LEFT ARM RESERVE FOR FISTULA. ORDERS FOR POSSIBLE DISCAHRGE IF OK WITH RENAL. DENIES PAIN OR DISCOMFORT. WILL CONT TO MONITOR.
[2017-02-02 16:00] VITALS: BP 174/74
[2017-02-02 20:20] VITALS: BP 177/68
[2017-02-03 00:36] VITALS: BP 157/71
[2017-02-03 05:26] VITALS: BP 159/71
--- NOTE | 2017-02-03 07:41 | NUR ---
AM ROUNDING- RECEIVED REPORT FROM COMPUTER AIDED DESIGN OPERATOR NURSE CARMELO. PT IS CURRENTLY LAYING IN BED ON BACK WITH EYES OPEN RESTING. PT IS HARD OF HEARING. ON ROOM AIR. NO MONITOR. IV SEEN TO RIGHT FOREARM THAT IS CURRENTLY SALINE LOCKED. RESERVE LEFT ARM FOR AVF. NO NEED AT THIS CURRENT TIME. WILL CONTINUE TO MONITOR AND CONTINUE WITH PLAN OF CARE.
--- NOTE | 2017-02-03 07:45 | NUR ---
PER PEDIATRIC RADIOLOGIST CARMELO, DR. GATES HAS BEEN CALLED BY TWO DIFFERNT NURSES REGARDING RESTARTING HOME MEDICATIONS AND DR. GATES HAS STATED TO NURSES THAT HE WILL ADDRESS IT WHEN HE COMES IN (REFFERING TO THIS PAST WEEKEND). PER CARMELO, MEDICATIONS HAVE NOT BEEN RESTARTED STILL AND PT HAS BEEN TAKING OWN MEDICAITONS. PT IS TO POSSIBLY D/C TODAY. WILL ADDRESS THIS WITH RENAL HYDROMETEOROLOGICAL TECHNICIAN.
[2017-02-03 08:00] VITALS: BP 156/64
[2017-02-03 12:00] VITALS: BP 154/58
--- NOTE | 2017-02-03 13:18 | NUR ---
FORTINO ROCHA APN REGARDING DR. RIOS DISCHARGE ORDER (IF OKAY WITH NEPHROLOGY). WILL AWAIT CALL BACK.
--- NOTE | 2017-02-03 13:23 | NUR ---
RECEIVED CALLBACK FROM CECILE ROCHA (WITH RENAL). CECILE ROCHA INFORMED OF DR. RIOS D/C ORDER IN YESTERDAY (IF OK WITH NEPHROLOGY). CECILE ROCHA STATES DR. GARCIA WILL BE BY AND TO CATCH HIM REGARDING THAT.
[2017-02-03] MEDS ORDERED: PLAVIX75 MG PO (15:34)
--- NOTE | 2017-02-03 15:35 | NUR ---
Patient Name: ELIZABETH LOZANO Admission Status: Elective Accout number: [id number] Admission Date: 01-31-2017 : 1935 Admission Diagnosis: Attending: ANÍBAL GARCIA Current LOS: 3 Anticipated DC Date: 02-03-2017 Planned Disposition: Home Primary Insurance: MEDICARE A & B Discharge Planning Comments: * Is the patient Alert and Oriented? Yes 0 * How many steps to enter\exit or inside your home? NONE 0 * PCP DR. CARLOS ENRIQUE RAMÍREZ, [place] 0 * Pharmacy [facility] IN [place] 0 * Preadmission Environment Home with Family 0 * ADLs Independent 0 * Equipment Bedside Commode Rolling Walker Shower Chair 0 * Other Equipment [place] [facility], - MEDICAL EQUIPMENT PROVIDER 0 * List name and contact numbers for known caregivers / representatives who currently or will assist patient after discharge: ROXY SMITH, DTR, OLVIN JACOBSEN, DTR, 0 * Community resources currently utilized Other 0 * Please name any agencies selected above. OUTPATIENT DIALYSIS, [facility] IN [facility], 0630AM SCAT TRANSPORT ($6 ROUND TRIP) 0 * Additional services required to return to the preadmission environment? No 0 * Can the patient safely return to the preadmission environment? Yes 0 * Has this patient been hospitalized within the prior 30 days at any hospital? Yes 0 CM MET WITH PT IN ROOM TO DISCUSS DISCHARGE PLANNING AND NEEDS. PT REPORTS LIVING AT HOME INDEPENDENTLY WITH HER SPOUSE. PT HAS BEDSIDE COMMODE, ROLLING WALKER AND SHOWER CHAIR FROM [place] [facility]. PT HAS NO OUTSIDE SERVICES ASSISTING IN THE HOME. PT ATTENDS OUTPATIENT DIALYSIS IN [facility], 0630AM, SCAT BUS TRANSPORTATION. CM DISCUSSED AVAILABILITY OF HOME HEALTH, REHAB SERVICES AND MEDICAL EQUIPMENT. PT DENIES DISCHARGE NEEDS, REPORTS HER GRANDSON WILL PICK HER UP FOR DISCHARGE HOME. IMPORTANT MESSAGE FROM MEDICARE PROVIDED AND EXPLAINED. Engraver: Isak Gómez
--- NOTE | 2017-02-03 17:10 | NUR ---
D/C INSTRUCTIONS EXPLAINED TO PT. D/C PAPERWORK SIGNED BY PT AND PLACED IN CHART. IV TO RIGHT FOREARM REMOVED WITH CATH TIP INTACT. COVERED SITE WITH 2X2 GAUZE AND SECURED WITH TEGADERM (DUE TO BLEEDING, PRESSURE HELD FIRMLY). AUNG HUDSON ASSISTED PT GETTING DRESSED. PT D/C VIA WHEELCHAIR. GRANDSON IS DRIVING PT HOME.
== END 2017-02-03 17:19 | disposition home or self-care (01) | DRG 252 ==
LOC: D.OPS 09:30 → D.M2 16:42 → D.OPS 16:43 → D.M2 02-03 17:19
PROVIDERS: Surgery; ADMIT Internal Medicine Nephrology
PROC: 3E03317 Introduction of Other Thrombolytic into Peripheral Vein, Percutaneous Approach (ICD-10-PCS; 2017-01-31)
PROC: 03C83ZZ Extirpation of Matter from Left Brachial Artery, Percutaneous Approach (ICD-10-PCS; principal; 2017-01-31 12:15)
PROC: 03783ZZ Dilation of Left Brachial Artery, Percutaneous Approach (ICD-10-PCS; 2017-01-31 12:15)
PROC: 5A1D70Z Performance of Urinary Filtration, Intermittent, Less than 6 Hours Per Day (ICD-10-PCS; 2017-02-01)
DX: T82.868A Thrombosis due to vascular prosthetic devices, implants and grafts, initial encounter (principal); N18.6 End stage renal disease; Y83.8 Other surgical procedures as the cause of abnormal reaction of the patient, or of later complication, without mention of misadventure at the time of the procedure; E11.22 Type 2 diabetes mellitus with diabetic chronic kidney disease; Z99.2 Dependence on renal dialysis; Z87.891 Personal history of nicotine dependence

== ENCOUNTER 2018-03-01 14:15 | Inpatient (IN) | payer MEDICARE ==
[~2018-03-01] VITALS: Ht 154.9 cm; Wt 83.4 kg
--- NOTE | ~2018-03-01 | MORECARE ---
CASE MANAGEMENT DISCHARGE SUMMARY PATIENT: ELIZABETH LOZANO UNIT: [id number] ADM DATE: 03/01/18 AGE: 82 : 34 SEX: F ROOM/BED: D.2120 AUTHOR: SKYLER MAHONEY PHYSICIAN: REFERRING PHYSICIAN: AGATA CORTEZ MD DATE OF SERVICE: 03/05/18 Discharge Plan Patient Name: ELIZABETH LOZANO Facility: [facility]:[place] : 1935 Planned Disposition: Home Anticipated Discharge Date: 03/07/18 Discharge Date: Expected LOS: 6 Initial Reviewer: [email or web address] Initial Review Date: 03/05/2018 Generated: 03/05/18 10:21 am DCPIA - Discharge Planning Initial Assessment Updated by [email or web address]: Mag Moore on 03/05/18 9:21 am * Is the patient Alert and Oriented? Yes * How many steps to enter\exit or inside your home? * PCP DR. ARUN LOREDO (DR. RAMÍREZ - RETIRED) [place] * Pharmacy [facility] * Preadmission Environment Home with Family * ADLs Partial Dependent * Partial ADLs (Assistance needed) Bathing Dressing Medication Management * Equipment Walker Wheelchair * List name and contact numbers for known caregivers / representatives who currently or will assist patient after discharge: ROXY (DAUGHTER) [phone] * Verbal permission to speak to the caregivers and representatives has been obtained from the patient. Yes * Community resources currently utilized None * Additional services required to return to the preadmission environment? Yes * Can the patient safely return to the preadmission environment? Yes * Has this patient been hospitalized within the prior 30 days at any hospital? No Patient Name: ELIZABETH LOZANO Page 16850 at 0921 All edits/amendments must be made on the electronic document DICTATION DATE: 03/05/18920 ESCALATOR INSTALLER: JAY 03/05/18920 RPT#: [id number] DC DATE: STATUS: ADM IN [facility] [address] [place] [address] END OF REPORT
--- NOTE | ~2018-03-01 | MORECARE ---
CASE MANAGEMENT DISCHARGE SUMMARY PATIENT: ELIZABETH LOZANO UNIT: [id number] ADM DATE: 03/01/18 AGE: 82 : 34 SEX: F ROOM/BED: D.4890 AUTHOR: SKYLER MAHONEY PHYSICIAN: REFERRING PHYSICIAN: AGATA CORTEZ MD DATE OF SERVICE: 03/05/18 Discharge Plan Patient Name: ELIZABETH LOZANO Facility: [facility]:[place] : 1935 Planned Disposition: Home Anticipated Discharge Date: 03/07/18 Discharge Date: Expected LOS: 6 Initial Reviewer: [email or web address] Initial Review Date: 03/05/2018 Generated: 03/05/18 10:37 am Comments DCP- Discharge Planning Updated by [email or web address]: Mag Moore on 03/05/18 8:[address] Patient Name: ELIZABETH LOZANO Admission Status: ER Accout number: [id number] Admission Date: 03-01-2018 : 1935 Admission Diagnosis: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 PATIENT STATED SHE LIVES WITH HER SPOUSE (SIL) AND THEY HAVE NO STEPS OR STAIRS AT THEIR HOME. PATIENT STATED HER FAMILY WILL DRIVE HER HOME AT DISCHARGE. PATIENTS PCP IS DR. ARUN LOREDO AND USES [facility] IN [place]. PATIENT HAS A WALKER, WHEELCHAIR, BS COMMODE, SHOWER CHAIR, AND GLUCOMETER AT HOME. PATIENTS FAMILY HELPS HER WITH BATHING, DRESSING, AND MEDS WHEN NEEDED. PATIENT STATED SHE DOES NOT WANT HOME HEALTH AT THIS TIME, CM TOLD DAUGHTER (OLVIN) THEY COULD CONTACT PATIENTS PCP AT ANYTIME FOR HOME HEALTH. CM WILL CONTINUE TO FOLLOW PATIENT WITH D/C NEEDS AND PLANS. [facility] [place] OLVIN (DAUGHTER) [phone] Sexual Assault Nurse: Mag Moore DCPIA - Discharge Planning Initial Assessment Updated by [email or web address]: Mag Moore on 03/05/18 9:28 am * Is the patient Alert and Oriented? Yes * How many steps to enter\exit or inside your home? * PCP DR. ARUN LOREDO (DR. RAMÍREZ - RETIRED) [place] * Pharmacy [facility] * Preadmission Environment Home with Family * ADLs Partial Dependent * Partial ADLs (Assistance needed) Bathing Dressing Medication Management * Equipment Bedside Commode Glucometer Shower Chair Walker Wheelchair * List name and contact numbers for known caregivers / representatives who currently or will assist patient after discharge: ROXY (DAUGHTER) [phone] OR [phone] OLVIN (DAUGHTER) [phone] * Verbal permission to speak to the caregivers and representatives has been obtained from the patient. Yes * Community resources currently utilized None * Additional services required to return to the preadmission environment? Yes * Can the patient safely return to the preadmission environment? Yes * Has this patient been hospitalized within the prior 30 days at any hospital? No Last DP export: 03/05/18 8:21 Patient Name: ELIZABETH LOZANO Page 57030 at 0937 All edits/amendments must be made on the electronic document DICTATION DATE: 03/05/18935 ASSISTANT DIRECTOR OF SECURITY: JAY 03/05/18935 RPT#: [id number] DC DATE: STATUS: ADM IN [facility] [address] [place] [address] END OF REPORT
--- NOTE | ~2018-03-01 | MORECARE ---
CASE MANAGEMENT DISCHARGE SUMMARY PATIENT: ELIZABETH LOZANO UNIT: [id number] ADM DATE: 03/01/18 AGE: 82 : 34 SEX: F ROOM/BED: D.8000 AUTHOR: SKYLER MAHONEY PHYSICIAN: REFERRING PHYSICIAN: AGATA CORTEZ MD DATE OF SERVICE: 03/09/18 Discharge Plan Patient Name: ELIZABETH LOZANO Facility: [facility]:[place] : 1935 Planned Disposition: Home Anticipated Discharge Date: 03/07/18 Discharge Date: 03/07/2018 Expected LOS: 6 Initial Reviewer: [email or web address] Initial Review Date: 03/05/2018 Generated: 03/09/18 11:48 am Comments DCP- Discharge Planning Updated by [email or web address]: Mag Moore on 03/05/18 8:[address] Patient Name: ELIZABETH LOZANO Admission Status: ER Accout number: [id number] Admission Date: 03-01-2018 : 1935 Admission Diagnosis: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 PATIENT STATED SHE LIVES WITH HER SPOUSE (SIL) AND THEY HAVE NO STEPS OR STAIRS AT THEIR HOME. PATIENT STATED HER FAMILY WILL DRIVE HER HOME AT DISCHARGE. PATIENTS PCP IS DR. ARUN LOREDO AND [facility] [place]. PATIENT HAS A WALKER, WHEELCHAIR, BS COMMODE, SHOWER CHAIR, AND GLUCOMETER AT HOME. PATIENTS FAMILY HELPS HER WITH BATHING, DRESSING, AND MEDS WHEN NEEDED. PATIENT STATED SHE DOES NOT WANT HOME HEALTH AT THIS TIME, CM TOLD DAUGHTER (OLVIN) THEY COULD CONTACT PATIENTS PCP AT ANYTIME FOR HOME HEALTH. CM WILL CONTINUE TO FOLLOW PATIENT WITH D/C NEEDS AND PLANS. PCP DR. ARUN LOREDO [facility] IN [place] OLVIN (DAUGHTER) [phone] Manager Of Development: Mag Moore DCPIA - Discharge Planning Initial Assessment Updated by [email or web address]: Mag Moore on 03/05/18 9:28 am * Is the patient Alert and Oriented? Yes * How many steps to enter\exit or inside your home? * PCP DR. ARUN LOREDO (DR. RAMÍREZ - RETIRED) [place] * Pharmacy [facility] * Preadmission Environment Home with Family * ADLs Partial Dependent * Partial ADLs (Assistance needed) Bathing Dressing Medication Management * Equipment Bedside Commode Glucometer Shower Chair Walker Wheelchair * List name and contact numbers for known caregivers / representatives who currently or will assist patient after discharge: ROXY (DAUGHTER) [phone] OR [phone] OLVIN (DAUGHTER) [phone] * Verbal permission to speak to the caregivers and representatives has been obtained from the patient. Yes * Community resources currently utilized None * Additional services required to return to the preadmission environment? Yes * Can the patient safely return to the preadmission environment? Yes * Has this patient been hospitalized within the prior 30 days at any hospital? No Last DP export: 03/05/18 8:37 Patient Name: ELIZABETH LOZANO Page 12799 at 1048 All edits/amendments must be made on the electronic document DICTATION DATE: 03/09/181046 MANAGER DRIVE: JAY 03/09/181046 RPT#: [id number] DC DATE:03/07/18 STATUS: DIS IN [facility] [address] [place] [address] END OF REPORT
--- NOTE | ~2018-03-01 | OP ---
PATIENT NAME: ELIZABETH LOZANO MEDICAL RECORD: [id number] :[birth year] LOCATION:D. 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 REFERRING PHYSICIAN: Dr. Figueroa and Dr. Reyna of [place], and Dr. Garcia and Dr. Frausto here in [place]. OPERATION PERFORMED: AngioJet mechanical thrombolysis and angiogram with balloon angioplasty, left upper extremity HeRO AV graft and selective axillary artery arteriogram and balloon angioplasty of segmental stenosis of brachial artery beginning distal to the origin of the deep brachial artery and extending for about 6 cm and well proximal to the arterial anastomosis, so as not to be considered a part of the dialysis circuit. SURGEON: Arun Rubalcava MD ANESTHESIA: General with LMA per [employer]ING GAME WARDEN. PREOPERATIVE NOTE: Ms. Lozano is an 82-year-old -[place] female from [place], [place]. She has end-stage renal disease and is on chronic hemodialysis. She has a left upper extremity HeRO graft, which had functioned well for the last year, but in the last 4 to 6 weeks she has had multiple episodes of graft thrombosis. She has had the clot procedures at [facility], which though initially successful and seemingly easy were plagued by recurrent early graft occlusion. She was admitted to the hospital last week with a thrombosed HeRO graft and I was unable to get her into the operating room on Friday as I had originally scheduled and on Friday due to time constraints in the operating room, she had a left femoral HemoSplit catheter placed and I have been unable to get her back into the operating room until Friday of this week, so a week from the original scheduled surgery. She has been inpatient all this time. Fortunately, she has been dialyzing well with the HemoSplit. She is brought to the operating room now to do an AngioJet mechanical thrombolysis and indicated procedures with taking a very hard look at the arterial inflow as it is suspected there may be an arterial inflow problem. Note, she has been on Plavix, but not any other anticoagulants. DESCRIPTION OF PROCEDURE: Under general anesthesia with an LMA per [employer]ING GAME WARDEN, the patient was placed in supine position, prepped and draped in a sterile manner. The HeRO graft was accessed with ultrasound guidance near the elbow, directing the needle and introducer proximally. A 6-Taiwanese introducer sheath was placed and a Glidewire and AngioJet catheter advanced to the right atrial terminus of the HeRO graft and clot was then lysed with the AngioJet. Contrast injection demonstrated some mild stenosis and irregularity within a Wallstent, within the mid body of her HeRO PTFE and these areas were all dilated successfully with a OPERATIVE REPORT [id number] ELIZABETH LOZANO 7-mm angioplasty balloon. Contrast injection subsequently revealed good lumen with smooth margins. Again, ultrasound was used to access the graft proximally in the shoulder area. A #6-Taiwanese sheath was placed and later an 8-Taiwanese was used. A Glidewire was inserted and directed into the proximal brachial artery through the arterial anastomosis and advanced proximally into the subclavian artery. I passed an angled glide catheter then into the distal subclavian proximal brachial artery and performed a selective arteriogram. This revealed a very tight 95% luminal narrowing of a rather long segment of the brachial artery, which began just distal to the origin of the deep brachial artery and proximal enough from the arterial anastomosis to not be considered a part of the dialysis circuit. This length of brachial artery was dilated with a 5-mm angioplasty balloon and then a 7-mm angioplasty balloon. Contrast injections then revealed an unsatisfactory result and this was treated by placing a 5 cm long 7-mm diameter Viabahn endograft stent. Imaging then revealed a smooth normal contour and lumen of the brachial artery. The brachial artery distal to the anastomosis was smaller, but there was a good distal flow and no sign of embolization. The 7-Taiwanese angioplasty balloon was used to dilate impacted clot in the arterial anastomosis and JA segment and a 4-Taiwanese Jasmin embolectomy catheter was used to remove thrombus from the arterial anastomosis. The final angiograms revealed excellent flow through the fistula with no areas of stenosis within the arterial inflow or graft itself. The patient was awakened and taken to the recovery room in stable condition. Blood loss was trivial and unreplaced about 5-10 cc. The patient will go back to her room and resume her diet and all of her same medications and hopefully have dialysis here today via her HeRO AV graft. If it functions well, she can be discharged to home. I would leave the HemoSplit catheter in her thigh for about 2 weeks and if her graft is functioning well and she has had no more episodes of thrombosis, then we can take her thigh HemoSplit out. Note, the patient was given 5000 units of heparin systemically at the beginning of the operation and this was not reversed. TRANSINT:[id number] Voice Confirmation ID: [id number] DOCUMENT ID: [id number] CC: [facility] [place], [place] ARUN RUBALCAVA MD CC: [facility], ANÍBAL GARCIA HINTON, JOHNNIE, III MD,[id number] ANÍBAL REYNA MD and AGATA FRAUSTO MD DICTATION DATE: 03/06/18 1133 LOOM TUNER: 03/06/18 1356 ADM IN [facility] [address] [place] [address]
--- NOTE | ~2018-03-01 | OP ---
PATIENT NAME: ELIZABETH LOZANO MEDICAL RECORD: [id number] :34 LOCATION:D. D.2120 ADMISSION DATE:03/01/18 SURGEON: ARUN RUBALCAVA MD DATE OF OPERATION: 03/03/2018 REFERRING PHYSICIANS: Dr. Boss in [place] and Dr. Frausto. OPERATION PERFORMED: Ultrasound-guided percutaneous access of the left common femoral vein, performance of inferior vena cavogram, and then insertion of a left common femoral 35-cm HemoSplit tunneled dialysis catheter. SURGEON: Arun Rubalcava MD ANESTHESIA: General with LMA per AIRFRAME AND POWERPLANT TECHNICIAN. PREOPERATIVE NOTE: Ms. Lozano is an 82-year-old -[place] female from [place], [place], who has end-stage renal disease and is on chronic hemodialysis with a left upper extremity HeRO graft. That graft has functioned well for over a year, but recently actually 4 times in the last month it has thrombosed and she has required mechanical thrombolysis procedure at [facility]. It thrombosed again and before she was sent to [place] for admission here to [place], a surgeon in [place] supposedly attempted insertion of a right internal jugular IV line or dialysis catheter. This was unsuccessful. She is brought to the operating room now with plans to insert a HemoSplit catheter. Earlier, I had hopes it would be able to try to reopen her HeRO graft even though our AngioJet device is not functioning and we are awaiting a food service helper, but now the electric transformer on the street has to be replaced by energy and we are going on emergency power from 8 o'clock this evening until expected morning and so there is no time to do anything more than put in a catheter this evening. Under general anesthesia with an LMA per AIRFRAME AND POWERPLANT TECHNICIAN, the patient is prepped and draped in sterile manner. Left groin was examined with Duplex ultrasound and the left common femoral vein was found to be of normal caliber and fully compressible. With ultrasound guidance and micropuncture technique, a needle and guidewire were inserted and following that a larger wire was placed under fluoroscopy. Dilators were passed and lastly a peel-away dilator sheath. I chose a 35-cm HemoSplit. It was placed in a short subcutaneous tunnel and then inserted through the sheath and under fluoroscopy, its tip reached well up into the mid IVC. Contrast injection through the arterial limb of the HemoSplit demonstrated a patent inferior vena cava up as far as the diaphragm and right atrium. The catheter was then heparin locked. It was sutured to the skin near the entry site with 2-0 Prolene. The groin incision was closed with a single interrupted inverted 3-0 Vicryl suture. Unfortunately, the patient's skin particularly in the groin area and groin crease is very thin and fragile and she suffered skin tears extremely easily. These were all sealed with glue and dressed with Maxorb Ag, Tegaderm, and Cavilon skin prep and a standard CVL dressing with chlorhexidine-impregnated biodisc was placed over the catheter at the exit site. The patient was awakened and in a stable condition taken to the recovery room. Results of the IVC were that there was no obstruction or evidence of any lesions within the left external or common iliac veins or the inferior vena cava. TRANSINT:[id number] Voice Confirmation ID: [id number] DOCUMENT ID: [id number] OPERATIVE REPORT [id number] ELIZABETH LOZANO JAMES MD at 2045 CC: KARSTEN BOSS III MD and AGATA FRAUSTO MD [id number] DICTATION DATE: 03/03/18 182 PRESCHOOL SUBSTITUTE TEACHER: 03/04/18 0129 ADM IN [facility] [address] [place] [address]
[~2018-03-01 14:15] MED LIST changes: +PLAVIX75 MG PO
[2018-03-01] MEDS ORDERED: HYDRALAZINE HCL50 MG PO (14:48)
[2018-03-01] MEDS ORDERED: COREG6.25 MG (14:48)
[2018-03-01] MEDS ORDERED: ISOSORBIDE MONO30 M1 (14:49)
[2018-03-01 15:34] LABS: BASOPHILS 0.3 % (0-2); EOSINOPHILS 4.8 % (0-7); HEMATOCRIT 35.3 % (36.0-48.0); HEMOGLOBIN 11.4 g/dL (12-16); IMMATURE GRANULOCYTES 0.4 % (0-5); LYMPHOCYTES 23.9 % (15-50); MCH 30.2 pg (26.0-34.0); MCHC 32.3 g/dL (31.0-37.0); MCV 93.6 fL (80.0-100.0); MEAN PLATELET VOLUME 9.8 fL (7.4-10.4); MONOCYTES 6.1 % (2-11); NEUTROPHILS 64.5 % (40-80); PLATELET COUNT 188 10x3/uL (130-400); RBC 3.77 10x6/uL (4.00-5.40); WBC 9.9 10x3/uL (4.8-10.8)
[2018-03-01 15:58] LABS: ALBUMIN 3.7 g/dL (3.4-5.0); BILIRUBIN - TOTAL 0.37 mg/dL (0.2-1.3); CALCIUM 8.5 mg/dL (8.5-10.1); CARBON DIOXIDE 21.4 mmol/L (21.0-32.0); CREATININE - SERUM 10.3 mg/dL (0.6-1.3); POTASSIUM - SERUM 4.4 mmol/L (3.5-5.1); PROTEIN - SERUM 7.4 g/dL (6.4-8.2)
[2018-03-01 17:00] VITALS: BP 150/92
[2018-03-01] MEDS ORDERED: PHOSLO667 MG PO (22:24)
[2018-03-02] VITALS (7 sets, daily range): BP systolic 128–175; BP diastolic 62–87; Ht 154.9 cm; Wt 83.4 kg
[2018-03-02 06:19] LABS: BASOPHILS 0.1 % (0-2); EOSINOPHILS 4.5 % (0-7); HEMATOCRIT 33.6 % (36.0-48.0); HEMOGLOBIN 11.1 g/dL (12-16); IMMATURE GRANULOCYTES 0.5 % (0-5); LYMPHOCYTES 14.8 % (15-50); MCH 30.2 pg (26.0-34.0); MEAN PLATELET VOLUME 9.5 fL (7.4-10.4); MONOCYTES 8.9 % (2-11); NEUTROPHILS 71.2 % (40-80); PLATELET COUNT 162 10x3/uL (130-400); RBC 3.67 10x6/uL (4.00-5.40)
[2018-03-02 06:24] LABS: MCV 91.6 fL (80.0-100.0)
[2018-03-02 06:30] LABS: CARBON DIOXIDE 19.7 mmol/L (21.0-32.0); CREATININE - SERUM 10.5 mg/dL (0.6-1.3); POTASSIUM - SERUM 4.7 mmol/L (3.5-5.1)
[2018-03-02 19:45] LABS: INR 1.09 (0.85-1.17); PROTIME 13.6 SECONDS (11.6-15.0)
[2018-03-03] VITALS: BP 138/64
[2018-03-03 06:04] LABS: ALBUMIN 3.2 g/dL (3.4-5.0); ANION GAP 23.1 mmol/L (8-16); BILIRUBIN - TOTAL 0.41 mg/dL (0.2-1.3); CALCIUM 7.8 mg/dL (8.5-10.1); CARBON DIOXIDE 18.9 mmol/L (21.0-32.0); CREATININE - SERUM 11.6 mg/dL (0.6-1.3); PROTEIN - SERUM 7.1 g/dL (6.4-8.2)
[2018-03-03 08:30] VITALS: BP 166/77
[2018-03-03 12:08] VITALS: BP 151/76
[2018-03-03 16:08] VITALS: BP 169/80
[2018-03-04 04:00] VITALS: BP 118/60
[2018-03-04 08:25] VITALS: BP 124/71
[2018-03-04 12:15] VITALS: BP 138/78
[2018-03-04 16:15] VITALS: BP 121/73
[2018-03-05 00:29] VITALS: BP 139/71
[2018-03-05 04:00] VITALS: BP 142/72
[2018-03-05 07:37] VITALS: BP 147/73
[2018-03-05 12:12] VITALS: BP 115/73
[2018-03-05 16:15] VITALS: BP 132/70
[2018-03-05 20:45] VITALS: BP 121/55
[2018-03-06 00:17] VITALS: BP 133/69
[2018-03-06 05:04] VITALS: BP 112/64
[2018-03-06 12:07] VITALS: BP 124/72
[2018-03-06 20:00] VITALS: BP 101/51
[2018-03-07] VITALS: BP 109/60
[2018-03-07 04:00] VITALS: BP 106/54
[2018-03-07 08:07] VITALS: BP 117/57
[2018-03-07] MEDS ORDERED: PLAVIX75 MG PO (10:27)
== END 2018-03-07 15:14 | disposition home or self-care (01) | DRG 252 ==
LOC: D.ER 14:15 → D.EDHOLD 18:16 → D.M2 18:16
PROVIDERS: Emergency Medicine; Internal Medicine Nephrology; Surgery
PROC: 0JHM3XZ Insertion of Tunneled Vascular Access Device into Left Upper Leg Subcutaneous Tissue and Fascia, Percutaneous Approach (ICD-10-PCS; 2018-03-03)
PROC: 06HN33Z Insertion of Infusion Device into Left Femoral Vein, Percutaneous Approach (ICD-10-PCS; 2018-03-03)
PROC: B54CZZA Ultrasonography of Left Lower Extremity Veins, Guidance (ICD-10-PCS; 2018-03-03)
PROC: B5191ZZ Fluoroscopy of Inferior Vena Cava using Low Osmolar Contrast (ICD-10-PCS; principal; 2018-03-03 16:30)
PROC: 03783DZ Dilation of Left Brachial Artery with Intraluminal Device, Percutaneous Approach (ICD-10-PCS; 2018-03-06)
PROC: 03C83ZZ Extirpation of Matter from Left Brachial Artery, Percutaneous Approach (ICD-10-PCS; 2018-03-06 08:00)
DX: T82.868A Thrombosis due to vascular prosthetic devices, implants and grafts, initial encounter (principal); N18.6 End stage renal disease; I12.0 Hypertensive chronic kidney disease with stage 5 chronic kidney disease or end stage renal disease; Y83.8 Other surgical procedures as the cause of abnormal reaction of the patient, or of later complication, without mention of misadventure at the time of the procedure; E11.22 Type 2 diabetes mellitus with diabetic chronic kidney disease

== ENCOUNTER 2018-04-03 07:57 | Day surgery (SDC) | payer MEDICARE ==
[~2018-04-03] VITALS: Ht 154.9 cm; Wt 85.5 kg
[~2018-04-03 07:57] MED LIST changes: +COREG6.25 MG; +HYDRALAZINE HCL50 MG PO; +ISOSORBIDE MONO30 M1; +PHOSLO667 MG PO
[2018-04-03 08:29] LABS: BASOPHILS 0.3 % (0-2); EOSINOPHILS 4.3 % (0-7); HEMATOCRIT 31.4 % (36.0-48.0); HEMOGLOBIN 10.3 g/dL (12-16); IMMATURE GRANULOCYTES 0.8 % (0-5); LYMPHOCYTES 20.9 % (15-50); MCH 31.7 pg (26.0-34.0); MCHC 32.8 g/dL (31.0-37.0); MCV 96.6 fL (80.0-100.0); MEAN PLATELET VOLUME 9.1 fL (7.4-10.4); MONOCYTES 6.5 % (2-11); NEUTROPHILS 67.2 % (40-80); PLATELET COUNT 173 10x3/uL (130-400); RBC 3.25 10x6/uL (4.00-5.40); RDW 20.1 % (11.5-14.5); WBC 10.1 10x3/uL (4.8-10.8)
[2018-04-03 08:49] LABS: INR 1.02 (0.85-1.17); PROTIME 12.9 SECONDS (11.6-15.0)
[2018-04-03 08:52] LABS: CALCIUM 8.9 mg/dL (8.5-10.1); CARBON DIOXIDE 21.2 mmol/L (21.0-32.0); CREATININE - SERUM 5.1 mg/dL (0.6-1.3); POTASSIUM - SERUM 4.2 mmol/L (3.5-5.1)
[2018-04-03 09:28] LABS: APTT 30.3 SECONDS (22.8-39.4)
[2018-04-03 10:12] VITALS: BMI 793.3
[2018-04-03 17:56] VITALS: BP 161/96; Ht 154.9 cm; Wt 85.5 kg
--- NOTE | 2018-04-03 17:57 | NUR ---
RECIEVED FROM RECOVERY ROOM. SEDATED BUT AWAKENS EASILY. DRSG TIMES 2 ON LEFT UPPER ARM, GOOD BRUIT AND THRILL. HEMISPLIT TO LEFT GROIN. V/S STABLE. SR UP WITH CALL LIGHT IN REACH. FAMILY AT BEDSIDE. . DENIES ANY NEEDS AT PRESENT TIME.
[2018-04-03 19:00] VITALS: BP 143/67
--- NOTE | 2018-04-03 19:55 | NUR ---
RESUMING PATIENT CARE. PATIENT REMAINS SEDATED BUT IS EASILY AROUSABLE. RESPIRATIONS ARE EVEN AND UNLABORED. NO S/S OF DISTRESS. NO C/O PAIN. CALL LIGHT WITHIN REACH. NO NEEDS AT THIS TIME. PATIENT BOARD UPDATED. WILL CPOC.
--- NOTE | 2018-04-03 20:44 | NUR ---
FORTINO NICHOLE APN FOR RENAL REGARDING DR RUBALCAVA ORDERS.
--- NOTE | 2018-04-03 22:52 | NUR ---
CALLED TO PATIENT ROOM. PATIENT TAKING OWN SUPPLY OF MEDICATION. PATIENT STATED SHE TOOK HER HYDRALAZINE 50 MG AND COREG 3.125 MG. EXPLAINED TO PATIENT NOT TO TAKE ANY MEDICATION UNLESS OK'D BY PHYSICIAN. SO THAT WE ARE AWARE OF WHAT SHE IS TAKEN. PATIENT VERBALIZED UNDERSTANDING. WILL CPOC.
[2018-04-04] VITALS: BP 137/69
--- NOTE | 2018-04-04 00:06 | NUR ---
SPOKE WITH DR. GARCIA NOTIFIED HIM OF PATIENT ARRIVAL. REORDERED HS MEDS. WILL SPEAK WITH HOUSE SUPERVISER REGARDING PUTTING PATIENT ON PHYSICIANS ROUNDING LIST. WILL CPOC.
[2018-04-04 04:00] VITALS: BP 121/59
--- NOTE | 2018-04-04 04:45 | NUR ---
UNABLE TO GET PATIENT WEIGHT. PATIENT STATED SHE DOES NOT STAND. THE BED IN ROOM DOES NOT HAVE SCALE.
--- NOTE | 2018-04-04 07:00 | NUR ---
RECEIVED REPORT. ASSUMED CARE OF PATIENT. CALL LIGHT WITHIN REACH. NO DISTRESS. PATIENT IS HARD OF HEARING. LEFT ARM WITH GOOD BRUIT AND THRILL. PATIENT SCHEDULED TO RECEIVE DIALYSIS TODAY. NO DISTRESS.
[2018-04-04] MEDS ORDERED: HYDROCODON-ACE1 EAC7 PO (09:05)
--- NOTE | 2018-04-04 09:39 | NUR ---
PATIENT LEFT UNIT VIA BED FOR DIALYSIS AT THIS TIME. NO DISTRESS UPON LEAVING UNIT.
--- NOTE | 2018-04-04 10:07 | NUR ---
MEDICATED FOR PAIN WHILE IN DIALYSIS AT THIS TIME. NO DISTRESS.
[2018-04-04 10:41] VITALS: BP 149/72
--- NOTE | 2018-04-04 14:33 | NUR ---
TELEMETRY REMOVED. 22 GAUGE IV REMOVED FROM RIGHT HAND. CATHETER TIP INTACT. NO BLEEDING FROM SITE. 2X2 GAUZE APPLIED AND SECURED WITH TAPE. TOLERATED IV REMOVAL WELL. PATIENT DISCHARGING TO HOME SOON.
--- NOTE | 2018-04-04 15:34 | NUR ---
PATIENT LEFT UNIT VIA WHEELCHAIR. PATIENT DISCHARGED TO HOME. PATIENT LEFT UNIT WITH ALL PERSONAL BELONGINGS. PATIENT DISHCARGED TOHOME WITH FAMILY. PATIENT HAD HARD SCRIPT FOR How do you roll? UPON LEAVING UNIT.
--- NOTE | 2018-04-05 19:09 | OP ---
PATIENT NAME: ELIZABETH LOZANO MEDICAL RECORD: [id number] :34 LOCATION:TESSIE ADMISSION DATE: SURGEON: ARUN RUBALCAVA MD DATE OF OPERATION: 04/03/2018 REFERRING PHYSICIAN: Dr. Boss of [place]. PREOPERATIVE DIAGNOSES: End-stage renal disease with dependence on hemodialysis. 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 OPERATION PERFORMED: Percutaneous fistulogram with AngioJet mechanical thrombolysis and balloon angioplasty of the brachial artery segment in the mid arm, remote from the arterial anastomosis followed by open revision without thrombectomy by implantation of an Artegraft bovine prosthetic between HeRO graft just above the antecubital space and the most proximal brachial artery. SURGEON: Arun Rubalcava MD ANESTHESIA: General with LMA per MACHINE ASSEMBLER REFERRING PHYSICIAN: Karsten Boss MD BUS ESCORT: On-call here today is Jacques Garcia MD PREOPERATIVE NOTE: Ms. Lozano is an 82-year-old -[place] female on chronic hemodialysis in [place], [place]. She has HeRO graft on the left, which she has had now for some time, but in the last couple of months, she has had repeated recurring graft thromboses. I worked on her twice just fairly recently and the last time found a long segment of brachial artery stenosis in the arm well above the arterial anastomosis and I treated that with balloon angioplasty, and implantation of a Viabahn stent in the brachial artery. She, however, thrombosed not long after that operation. Fortunately, she was able to have a HemoSplit catheter inserted in the femoral vein in [place] and she is brought back now semi-electively for a thrombectomy and re-work of her graft. This time, I plan to go ahead and move the arterial inflow or arterial anastomosis well up on to the most proximal brachial artery or axillary artery. PROCEDURE: With the patient under anesthesia in supine position, she was prepped and draped in sterile manner. I made 2 incisions, one on the upper medial aspect of the arm and exposed the brachial artery and another to expose the graft just above the antecubital space. The graft was then accessed with a micropuncture technique and a 6-Portuguese introducer placed and a guidewire inserted and the AngioJet catheter used to lyse and remove clot from the body of the graft and the HeRO outflow device. Contrast injection revealed no residual problems or stenoses. I then passed a wire and catheter distally through the arterial anastomosis and up in the proximal brachial artery and performed a selective subclavian artery arteriogram. This revealed numerous collaterals in the upper arm and a long segment of recurrent severe stenosis of the brachial artery with patency, however, of these stented segment and very slow flow through the distal brachial artery into the forearm, which I believe is probably mostly supplied by collaterals. I performed balloon angioplasty with a 6 mm diameter balloon of this segment of brachial artery and repeated contrast OPERATIVE REPORT [id number] ELIZABETH LOZANO injections revealed significant improvement with still good flow through that segment of the artery. The patient was heparinized with 3000 units of heparin systemically and HeRO the graft was ligated just below or distal to the cephalic vein to Acuseal graft anastomosis. This HeRO having been implanted utilizing the previous brachiocephalic fistula remnants. The HeRO graft was transected. It was flushed vigorously with heparinized saline and clamped and I chose a 6-mm diameter Artegraft and anastomosed it end-to-end to the Acuseal segment with running 6-0 Prolene. The suture line was treated with BioGlue and the graft flushed with heparinized saline and clamped. The graft was then placed in a subcutaneous tunnel and taken upwards to the most proximal brachial artery where the graft was shortened and bevelled. The artery was opened and flushed proximally and distally with heparinized saline and then occluded with Silastic loops. The new graft was anastomosed end of graft to side of artery with continuous running 6-0 Prolene and when completed, the occluding clamps and loops were released, excellent flow was developed immediately within the HeRO graft, and in the brachial artery and the suture line was hemostatic. I demonstrated good Doppler flow in the radial and ulnar arteries with and without graft occlusion, indicating as I have said probable significant supply by collaterals in the upper arm bypassing the HeRO graft. The patient's heparin was reversed with 10 mg of protamine and she was given 20 mcg of DDAVP. Hemostasis additionally was obtained with electrocautery and gentle compression with dry gauze. The wounds were closed without the use of a drain approximating subcutaneous tissues with interrupted inverted 3-0 Vicryl. The skin was closed with running intracuticular 4-0 Monocryl and Dermabond glue and dressed with Maxorb Ag, Tegaderm, and Cavilon skin prep. At that point, the patient was awakened and taken to the recovery room in stable condition with a good bruit audible over her HeRO graft. It is 5:00 in the afternoon. The patient had a long operation. She is 82 years old, lives a long distance from here and I think it is very appropriate that she be kept in overnight observation and have dialysis here tomorrow via her HeRO. She should be able hopefully to be discharged to home following that. She will continue all of her same medications and an appointment will be arranged for her to return to see me in my office probably week after next. Once she has been dialyzing HeRO graft for several weeks she can be scheduled for HemoSplit or tunneled dialysis catheter removal either in [place] or at [facility] Blood loss during the operation was perhaps 100 cc or less. None was replaced. Sponges, instruments, and needles were accounted for. No drain was used. No surgical specimen was submitted for histopathology. TRANSINT:[id number] Voice Confirmation ID: [id number] DOCUMENT ID: [id number] CC: ANITA Pollack [phone] ARUN RUBALCAVA MD at 1909 CC: ANITA GARCIA, JACQUES GARCIA and KARSTEN BOSS III [id number] DICTATION DATE: 04/03/18 1650 RESERVATION SALES AGENT: 04/04/18 0003 [facility] 04/04/18 [facility] [address] [place] [address]
== END 2018-04-04 15:15 | disposition home or self-care (01) ==
LOC: D.OPS 07:57 → D.M2 07:57 → D.OPS 12:00 → D.M2 17:18 → D.OPS 04-04 15:15
PROVIDERS: Surgery
DX: T82.868A Thrombosis due to vascular prosthetic devices, implants and grafts, initial encounter (principal); N18.6 End stage renal disease; Z99.2 Dependence on renal dialysis

== ENCOUNTER 2018-06-05 13:10 | Inpatient (IN) | payer MEDICARE ==
[2018-06-05] VITALS: BP 128/62
[~2018-06-05] VITALS: Ht 154.9 cm; Wt 85.3 kg
[~2018-06-05 13:10] MED LIST changes: +HYDROCODON-ACE1 EAC7 PO
[2018-06-05 13:48] LABS: BASOPHILS 0.4 % (0-2); EOSINOPHILS 8.2 % (0-7); HEMATOCRIT 34.5 % (36.0-48.0); HEMOGLOBIN 10.9 g/dL (12-16); IMMATURE GRANULOCYTES 0.4 % (0-5); LYMPHOCYTES 31.6 % (15-50); MCH 30.2 pg (26.0-34.0); MCHC 31.6 g/dL (31.0-37.0); MCV 95.6 fL (80.0-100.0); MEAN PLATELET VOLUME 9.6 fL (7.4-10.4); MONOCYTES 9.2 % (2-11); NEUTROPHILS 50.2 % (40-80); PLATELET COUNT 198 10x3/uL (130-400); RBC 3.61 10x6/uL (4.00-5.40); RDW 19.4 % (11.5-14.5); WBC 7.3 10x3/uL (4.8-10.8)
[2018-06-05 13:56] LABS: CALCIUM 8.8 mg/dL (8.5-10.1); CREATININE - SERUM 5.7 mg/dL (0.6-1.3); INR 1.05 (0.85-1.17); PROTIME 13.2 SECONDS (11.6-15.0)
[2018-06-05 14:16] VITALS: BMI 35.8
[2018-06-05 17:38] VITALS: BP 127/60
[2018-06-05 17:41] VITALS: BP 127/60; BMI 35.6
--- NOTE | 2018-06-05 17:56 | NUR ---
1730-RECEVIED VIA STRETCHER FROM THE RECOVERY ROOM. VERY SLEEPLY, X 4 ASSIST TO BED. RESEVRE LEFT ARM WITH NEW HEMOGRAFT REVISION. + BRUIT AND THRILL. FAMILY AT BEDSIDE. WILL ADMIT.
[2018-06-05 20:00] VITALS: BP 147/57
--- NOTE | 2018-06-05 20:46 | NUR ---
INITIAL ROUNDS COMPLETED AT 1915 HRS. PT AWAKES TO VERBAL STIMULI. APPLE JUICE GIVEN PER REQUEST. ASSESSMENT COMPLETED AT 1950 HRS. VSS. PT AWKES TO VERBAL STIMULI. DENIES ANY N/V AFTER DRINKING APPLE JUICE. IV TO R HAND WITH VANCOMYCIN INFUSING. IV PATENT. UPPER L ARM HEROGRAFT WITH GOOD BRUIT AND THRILL. NO BLEEDING NOTED. HUTCHISON. LUNGS CTA. PT VERY EKUK. SANDWICH TRAY GIVEN. SR UYP X2,CALL LIGHT WITHIN REACH.
--- NOTE | 2018-06-05 21:36 | NUR ---
PT RESTING WITH EYES CLOSED. RESP EVEN AND REGULAR. SR UP X2, CALL LIGHT WITHIN REACH.
--- NOTE | 2018-06-05 22:55 | NUR ---
PT INCONTINENT OF URINE. INCONTINENT CARE DONE. BED LINENS CHANGED. PT HAS C/O INCISION PAIN. RENAL SERVICES CALLED. NEW ORDERS RECEIVED AND NOTED. NORCO 10/325 PO GIVEN FOR C/O INCISIONAL PAIN. SR UP X2, CALL LIGHT WITHIN REACH.
--- NOTE | 2018-06-06 00:57 | NUR ---
PT SITTING UP IN THE CHAIR. NO DISTRESS NOTED. CALL LIGHT WITHIN REACH.
--- NOTE | 2018-06-06 00:59 | NUR ---
PT RESTING WITH EYES CLOSED. RESP EVEN AND REGULAR. SR UP X2, CALL LIGHT WITHIN REACH.
--- NOTE | 2018-06-06 02:03 | NUR ---
PT RESTING WITH EYES CLOSED. RESP EVEN AND REGULAR. SR UP X2, CALL LIGHT WITHIN REACH.
--- NOTE | 2018-06-06 04:01 | NUR ---
PT AWAKE; DENIES ANY DISCOMFORT. SR UP X2, CALL LIGHT WITHIN REACH.
[2018-06-06 04:23] VITALS: BP 136/68
--- NOTE | 2018-06-06 06:33 | NUR ---
VSS THROUGHOUT NIGHT. NO BLEEDING OR SWELLING NOTED TO L HEROGRAFT REVISION. PT CLEAN AND DRY AT THIS TIME. NEEDS MET; CALL LIGHT WITHIN REACH.
--- NOTE | 2018-06-06 07:27 | NUR ---
PT ASLEEP WHEN I ENTERED, DI DNOT WAKE. DID NOT FURTHER DISTURB AT THIS TIME. CL IN REACH, SRX2.
[2018-06-06 09:23] VITALS: BP 128/69
[2018-06-06 11:38] VITALS: BP 132/74
[2018-06-06 13:32] VITALS: Ht 154.9 cm; Wt 85.3 kg
--- NOTE | 2018-06-06 15:01 | NUR ---
I have reviewed this patient and I concur with the Shift Assessment completed by the Licensed Practical Nurse today this shift.
[2018-06-06 16:15] VITALS: BP 116/70
[2018-06-06 20:00] VITALS: BP 127/45
--- NOTE | 2018-06-06 21:33 | NUR ---
INITIAL ROUNDS COMPLETED AT 1915 HRS. PT DENIED ANY DISCOMFORT. FAMILY AT BEDSIDE. PT STATES HOB KEEPS GOING UP EVEN THOUGH SHE IS NOT TOUCHING THE CONTROLS. BEDS CHANGED OUT. PT INCONTINENT OF A SMALL AMOUNT OF URINE. INCONTINENT CARE DONE. ASSESSMENT COMPLETED AT 2009 HRS. VSS. IV TO R HAND WITH VANCOMYCIN INFUSING. IV PATENT. L UPPER ARM TESSIO WITH BRUIT AND HRILL NOTED. DRESSING CLEAN, DRY AND INTACT. LUNGS ESSENTIALLY CTA. HUTCHISON. PT VERY NENANA. SR UP X2, CALL LIGHT WITHIN REACH AND BED ALARM ON.
--- NOTE | 2018-06-06 22:34 | NUR ---
BED BATH DONE. PT STASTES FELS MUCH IMPROVED. PT REFUSES SCD'S. SR UP X2,CALL LIGHT WITHIN REACH AND BED ALARM ON.
[2018-06-07] VITALS: BP 128/51
--- NOTE | 2018-06-07 00:03 | NUR ---
PT RESTING WITH EYES CLOSED. RESP EVEN AND REGULAR. SR UP X2,CALL LIGHT WITHIN REACH AND BED ALARM ON.
--- NOTE | 2018-06-07 02:15 | NUR ---
PT RESTING WITH EYES CLOSED. RESP EVEN AND REGULAR. SR UP X2,CALL LIGHT WITHIN REACH AND BED ALARM ON.
[2018-06-07 03:00] VITALS: BP 122/50
--- NOTE | 2018-06-07 04:14 | NUR ---
PT RESTING WITH EYES CLOSED. RESP EVEN AND REGULAR. SR UP X2, CALL LIGHT WITHIN REACH.
--- NOTE | 2018-06-07 05:59 | NUR ---
VSS THROUGHOUT NIGHT. PT RESTED WELL DURING SHIFT. APPLE JUICE GIVEN PER REQUEST. NEEDS MET; WILL CONTINUE TO MONITOR.
[2018-06-07 06:05] LABS: BASOPHILS 0 % (0-2); EOSINOPHILS 6.3 % (0-7); HEMOGLOBIN 9.1 g/dL (12-16); IMMATURE GRANULOCYTES 0.4 % (0-5); MCH 34.2 pg (26.0-34.0); MCHC 34.9 g/dL (31.0-37.0); MEAN PLATELET VOLUME 9.6 fL (7.4-10.4); MONOCYTES 10.7 % (2-11); NEUTROPHILS 59.6 % (40-80); PLATELET COUNT 217 10x3/uL (130-400); RDW 20.7 % (11.5-14.5); WBC 5.7 10x3/uL (4.8-10.8)
[2018-06-07 06:07] LABS: HEMATOCRIT 26.1 % (36.0-48.0); MCV 98.1 fL (80.0-100.0); RBC 2.66 10x6/uL (4.00-5.40)
[2018-06-07 06:31] LABS: CALCIUM 7.7 mg/dL (8.5-10.1); VANCOMYCIN - RANDOM 19.3 ug/mL (10.0-20.0)
--- NOTE | 2018-06-07 07:16 | NUR ---
PT EASY TO AROUSE, STATES NOT CONCERNS/COMPLAINTS THIS A.M. NO FAMILY AT BEDSIDE CURRENTLY. CL IN REACH. SRX2.
[2018-06-07 09:27] VITALS: BP 126/48
[2018-06-07] MEDS ORDERED: VIBRAMYCIN 100100 MG PO (10:11)
--- NOTE | 2018-06-07 11:54 | NUR ---
PT ESCORTED OUT VIA WHEELCHAIR. ASSISTED BY PT AND MYSELF INTO THE TRUCK. FAMILY SAID I WAS FANTASTIC.
--- NOTE | 2018-06-07 20:10 | MORECARE ---
CASE MANAGEMENT DISCHARGE SUMMARY PATIENT: ELIZABETH LOZANO UNIT: [id number] ADM DATE: 06/05/18 AGE: 82 : 34 SEX: F ROOM/BED: D.6069 AUTHOR: SKYLER MAHONEY PHYSICIAN: REFERRING PHYSICIAN: ARUN RUBALCAVA MD DATE OF SERVICE: 06/07/18 Discharge Plan Patient Name: ELIZABETH LOZANO Facility: [facility]:[place] : 1935 Planned Disposition: Home Anticipated Discharge Date: 06/07/18 Discharge Date: 06/07/2018 Expected LOS: 2 Initial Reviewer: [email or web address] Initial Review Date: 06/06/2018 Generated: 06/07/18 9:10 pm Patient Name: ELIZABETH LOZANO Page [id number] at 2009 All edits/amendments must be made on the electronic document DICTATION DATE: 06/07/182009 STENOGRAPHER SECRETARY: JAY 06/07/182009 RPT#: [id number] DC DATE:06/07/18 STATUS: DIS IN [facility] [address] [place] [address] END OF REPORT
--- NOTE | 2018-06-07 20:17 | MORECARE ---
CASE MANAGEMENT DISCHARGE SUMMARY PATIENT: ELIZABETH LOZANO UNIT: [id number] ADM DATE: 06/05/18 AGE: 82 : 34 SEX: F ROOM/BED: D.6399 AUTHOR: SKYLER MAHONEY PHYSICIAN: REFERRING PHYSICIAN: ARUN RUBALCAVA MD DATE OF SERVICE: 06/07/18 Discharge Plan Patient Name: ELIZABETH LOZANO Facility: [facility]:[place] : 1935 Planned Disposition: Home Anticipated Discharge Date: 06/07/18 Discharge Date: 06/07/2018 Expected LOS: 2 Initial Reviewer: [email or web address] Initial Review Date: 06/06/2018 Generated: 06/07/18 9:17 pm DCPIA - Discharge Planning Initial Assessment Updated by [email or web address]: Nicole Lundy on 06/07/18 8:12 pm * Is the patient Alert and Oriented? Yes * How many steps to enter\exit or inside your home? none * PCP DR YAKOV RAMÍREZ * Pharmacy [facility] [place], [place] * Preadmission Environment Home with Family * ADLs Partial Dependent * Partial ADLs (Assistance needed) Bathing Dressing * Equipment Walker Wheelchair * Other Equipment DENIES ANT ADDITIONAL DME * List name and contact numbers for known caregivers / representatives who currently or will assist patient after discharge: [facility]- [phone] * Verbal permission to speak to the caregivers and representatives has been obtained from the patient. Yes * Community resources currently utilized Other * Please name any agencies selected above. HEMODIALYSIS T/T/S * Additional services required to return to the preadmission environment? No * Can the patient safely return to the preadmission environment? Yes * Has this patient been hospitalized within the prior 30 days at any hospital? Yes Last DP export: 06/07/18 7:10 p Patient Name: ELIZABETH LOZANO Page [phone] at 2017 All edits/amendments must be made on the electronic document DICTATION DATE: 06/07/182015 EMERGENCY DEPT TECH: JAY 06/07/18 2016 RPT#: [id number] DC DATE:06/07/18 STATUS: DIS IN [facility] [address] [facility] [place] [address] END OF REPORT
--- NOTE | 2018-06-07 20:23 | MORECARE ---
CASE MANAGEMENT DISCHARGE SUMMARY PATIENT: ELIZABETH LOZANO UNIT: [id number] ADM DATE: 06/05/18 AGE: 82 : 34 SEX: F ROOM/BED: D.0663 AUTHOR: MARUDOC PHYSICIAN: REFERRING PHYSICIAN: ARUN RUBALCAVA MD DATE OF SERVICE: 06/07/18 Discharge Plan Patient Name: ELIZABETH LOZANO Facility: [facility]:[place] : 1935 Planned Disposition: Home Anticipated Discharge Date: 06/07/18 Discharge Date: 06/07/2018 Expected LOS: 2 Initial Reviewer: [email or web address] Initial Review Date: 06/06/2018 Generated: 06/07/18 9:23 pm Comments DCP- Discharge Planning Updated by [email or web address]: Nicole Lundy on 06/07/18 7:[address] LATE ENTRY 1100 PATIENT RESTING IN BED. IS ANXIOUS FOR DISCHARGE. AWAITING STAFF TO ASSIST W/ DRESSING AND D/C HER IV. HER DAUGHTER, COLLEEN , AND SON IN LAW ARE AT THE BEDSIDE. PATIENT GIVES PERMISSION FOR CM TO DISCUSS DISCHARGE NEEDS W/ DTR AND SON IN LAW PRESENT. PATIENT IS LITTLE HARD OF HEARING. CM EXPLAINS ROLE. PATIENT DENIES ANY NEEDS. SHE LIVES W/ HER SPOUSE. HER DAUGHTER, ROXY SMITH , ASSIST W/ HER CARE. MS SMITH'S CONTACT PHONE NUMBER IS [phone]. PATIENT RECEIVES HD T/T/S EARLY SHIFT 0600. HAS TRANSPORTATION TO HOME. NO COMMUNITY OR HOME HEALTH SERVICES DME- WALKER AND WHEELCHAIR DENIES ANY NEEDS AT THIS TIME. DCPIA - Discharge Planning Initial Assessment Updated by [email or web address]: Nicole Lundy on 06/07/18 8:12 pm * Is the patient Alert and Oriented? Yes * How many steps to enter\exit or inside your home? none * PCP DR YAKOV RAMÍREZ * Pharmacy [facility] [place] * Preadmission Environment Home with Family * ADLs Partial Dependent * Partial ADLs (Assistance needed) Bathing Dressing * Equipment Walker Wheelchair * Other Equipment DENIES ANT ADDITIONAL DME * List name and contact numbers for known caregivers / representatives who currently or will assist patient after discharge: ROXY SMITH- DTR- [phone] * Verbal permission to speak to the caregivers and representatives has been obtained from the patient. Yes * Community resources currently utilized Other * Please name any agencies selected above. HEMODIALYSIS T/T/S * Additional services required to return to the preadmission environment? No * Can the patient safely return to the preadmission environment? Yes * Has this patient been hospitalized within the prior 30 days at any hospital? Yes Last DP export: 06/07/18 7:17 p Patient Name: ELIZABETH LOZANO Page [id number] at 2022 All edits/amendments must be made on the electronic document DICTATION DATE: 06/07/182022 MANAGER CCU: JAY 06/07/182022 RPT#: [id number] DC DATE:06/07/18 STATUS: DIS IN [facility] [address] [place] [address] END OF REPORT
--- NOTE | 2018-06-08 17:27 | OP ---
PATIENT NAME: ELIZABETH LOZANO MEDICAL RECORD: [id number] :33 LOCATION:D.M2 D.2129 ADMISSION DATE:06/05/18 SURGEON: ARUN RUBALCAVA MD DATE OF OPERATION: 06/05/2018 REFERRING PHYSICIANS: Dr. Reyna and Henry of [place] and Dr. Garcia of [place]. 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 OPERATION PERFORMED: Open revision without thrombectomy of HeRO graft, left arm. SURGEON: Arun Rubalcava MD ANESTHESIA: General per HEAD SWAMPER. PREOPERATIVE NOTE: Ms. Lozano is an 82-year-old -[place] female from [place], [place]. She has end-stage renal disease and is dependent on renal dialysis. She has had numerous dialysis access failures and has been doing pretty well, dialyzing with a left upper extremity HeRO graft, although she has had to have several interventions. Just last week, Dr. Garcia had to do another mechanical thrombolysis procedure, and he and I decided that it was time to proceed with a major revision of her graft. The existing PTFE portion is wearing out. She was brought to the hospital today by her daughter. It was rather difficult for her to get transportation here and did not arrive until pretty late in the day. The patient was given general anesthesia per HEAD SWAMPER and placed in supine position, prepped and draped in sterile manner. I reopened the incision over the deltopectoral groove and exposed the HeRO outflow component and the junction with the PTFE graft. I noted the PTFE graft was somewhat slimy consistent with a biofilm possibly indicating infection. The proximal PTFE and the connector and superficial part of the venous outflow device were totally freed from the surrounding tissues. I made an incision then over the medial arm and exposed the Artegraft segment, which is fairly close to the arterial anastomosis and the Artegraft was dissected from the surrounding structures. The patient was systemically heparinized with 5000 units of heparin and after adequate circulation time had elapsed, the Artegraft was transected and the venous outflow device was clamped and transected and a portion of the HeRO outflow graft with the connector and PTFE segment was excised and sent for culture. A portion of the Artegraft was also excised and sent for culture. I chose a new 6-mm diameter Acuseal quick stick graft and anastomosed it end-to-end to the Artegraft arterial limb. This was done with running 6-0 Prolene and that anastomosis was additionally sealed with BioGlue. When tested the anastomosis was watertight. A counter incision was made on the medial aspect of the arm and the new graft placed in a subcutaneous tunnel to that counter incision and then placed in a very superficial subcutaneous tunnel going up to the deltopectoral groove. Up there, it was shortened and prepared for anastomosis with the connector to the venous outflow. The venous outflow segment was accessed and OPERATIVE REPORT [id number] ELIZABETH LOZANO aspirated to remove any clots, which might be present. It was then flushed with heparinized saline. The new graft was allowed to bleed to expel any clots and air from the system. The connector was placed here in the outflow device end to end and the Acuseal graft was then attached to the connector and the connector closed and locked. The clamps were removed and flow was established in the HeRO. A chest x-ray was then obtained in the operating room, which demonstrated continued satisfactory position of the HeRO in the right atrium. Two interrupted simple sutures of 2-0 Prolene were used to anchor the venous outflow device and connector to the pectoral fascia. The wounds were then irrigated with Ancef-gentamicin solution. The patient was given a partial dose of 10 mg of protamine to reverse heparin. The wounds were closed with interrupted inverted 3-0 Vicryl and running intracuticular 4-0 Monocryl. The skin incisions were sealed with glue and dressed with Maxorb Ag, Tegaderm, and Cavilon skin prep. The patient then awakened and was taken to the recovery room. Prior to closure, all of the incisions were infiltrated with 0.25% Marcaine with epinephrine. Also during the operation, culturettes were used to swab the slimy graft, where I was suspicious of biofilm. Note, there was no purulent matter and the graft was seemingly secure within the tunnel, although not as well seated as probably optimally. Blood loss during the operation was about 10 cc, this was unreplaced. Sponges, instruments, and needles were accounted for. No drain was used and no specimen was submitted for histopathology. All specimens were sent for culture. The patient will need to be admitted to the hospital and stay here on antibiotics until we have the culture report, and she will need to have dialysis with the first stick of her Acuseal graft. Ideally, this would be better on Friday than Friday. She probably will be able to go home to [place] on Friday depending on results of her cultures and how her graft is functioning of course. In the past, she has been on anticoagulants. I believe she is presently on Plavix or is supposed to be. After her last or recent thrombectomy, she was placed on Eliquis as well, although I do not believe she ever got the Eliquis prescription filled. I believe I would plan to send her home on Plavix and not put her on Eliquis until she has another episode of graft thrombosis. TRANSINT:[id number] Voice Confirmation ID: [id number] DOCUMENT ID: [id number] cc: [facility] ARUN RUBALCAVA MD at 1727 CC: ANÍBAL GARCIA HINTON, JOHNNIE, III MD and ANÍBAL REYNA [id number] DICTATION DATE: 06/05/18 171 PORCELAIN ENAMEL REPAIRER: 06/05/18 2304 DIS IN 06/07/18 [id number] [place] [address]
--- NOTE | 2018-06-09 08:05 | MORECARE ---
CASE MANAGEMENT DISCHARGE SUMMARY PATIENT: ELIZABETH LOZANO UNIT: [id number] ADM DATE: 06/05/18 AGE: 82 : 34 SEX: F ROOM/BED: D.8988 AUTHOR: MARUDOC PHYSICIAN: REFERRING PHYSICIAN: ARUN RUBALCAVA MD DATE OF SERVICE: 06/09/18 Discharge Plan Patient Name: ELIZABETH LOZANO Facility: [facility]:[place] : 1935 Planned Disposition: Home Anticipated Discharge Date: 06/07/18 Discharge Date: 06/07/2018 Expected LOS: 2 Initial Reviewer: [email or web address] Initial Review Date: 06/06/2018 Generated: 06/09/18 9:04 am Comments DCP- Discharge Planning Updated by [email or web address]: Nicole Lundy on 06/07/18 7:[address] LATE ENTRY 1100 PATIENT RESTING IN BED. IS ANXIOUS FOR DISCHARGE. AWAITING STAFF TO ASSIST W/ DRESSING AND D/C HER IV. HER DAUGHTER, COLLEEN , AND SON IN LAW ARE AT THE BEDSIDE. PATIENT GIVES PERMISSION FOR CM TO DISCUSS DISCHARGE NEEDS W/ DTR AND SON IN LAW PRESENT. PATIENT IS LITTLE HARD OF HEARING. CM EXPLAINS ROLE. PATIENT DENIES ANY NEEDS. SHE LIVES W/ HER SPOUSE. HER DAUGHTER, ROXY SMITH , ASSIST W/ HER CARE. MS SMITH'S CONTACT PHONE NUMBER IS [phone]. PATIENT RECEIVES HD T/T/S EARLY SHIFT 0600. HAS TRANSPORTATION TO HOME. NO COMMUNITY OR HOME HEALTH SERVICES DME- [employer] DENIES ANY NEEDS AT THIS TIME. DCPIA - Discharge Planning Initial Assessment Updated by [email or web address]: Nicole Lundy on 06/07/18 8:12 pm * Is the patient Alert and Oriented? Yes * How many steps to enter\exit or inside your home? none * PCP DR YAKOV RAMÍREZ * Pharmacy [facility] * Preadmission Environment Home with Family * ADLs Partial Dependent * Partial ADLs (Assistance needed) Bathing Dressing * Equipment Walker Wheelchair * Other Equipment DENIES ANT ADDITIONAL DME * List name and contact numbers for known caregivers / representatives who currently or will assist patient after discharge: ROXY SMITH- DTR- [phone] * Verbal permission to speak to the caregivers and representatives has been obtained from the patient. Yes * Community resources currently utilized Other * Please name any agencies selected above. HEMODIALYSIS T/T/S * Additional services required to return to the preadmission environment? No * Can the patient safely return to the preadmission environment? Yes * Has this patient been hospitalized within the prior 30 days at any hospital? Yes Last DP export: 06/07/18 7:23 p Patient Name: ELIZABETH LOZANO Page [id number] at 0805 All edits/amendments must be made on the electronic document DICTATION DATE: 06/09/18803 DRAW FRAME RUNNER: JAY 06/09/18 08 RPT#: [id number] DC DATE:06/07/18 STATUS: DIS IN [facility] [address] [place] [address] END OF REPORT
== END 2018-06-07 11:56 | disposition home or self-care (01) | DRG 264 ==
LOC: D.OPS 13:10 → D.M2 17:11 → D.OPS 17:12 → D.M2 17:13
PROVIDERS: Internal Medicine Nephrology; ADMIT Surgery; ATTEND Surgery
PROC: 03180JV Bypass Left Brachial Artery to Superior Vena Cava with Synthetic Substitute, Open Approach (ICD-10-PCS; principal; 2018-06-05 12:45)
PROC: 5A1D70Z Performance of Urinary Filtration, Intermittent, Less than 6 Hours Per Day (ICD-10-PCS; 2018-06-06)
DX: T82.868A Thrombosis due to vascular prosthetic devices, implants and grafts, initial encounter (principal); N18.6 End stage renal disease; I12.0 Hypertensive chronic kidney disease with stage 5 chronic kidney disease or end stage renal disease; Y83.8 Other surgical procedures as the cause of abnormal reaction of the patient, or of later complication, without mention of misadventure at the time of the procedure; E11.22 Type 2 diabetes mellitus with diabetic chronic kidney disease; Z99.2 Dependence on renal dialysis; F41.9 Anxiety disorder, unspecified